=== PATIENT | female | born 1940 | race Caucasian/White ===

== ENCOUNTER 2016-10-27 18:32 | Inpatient (IN) | payer MEDICARE ==
[2016-10-27 19:41] LABS: Hematocrit 44 % (35-47); Hemoglobin 14.2 g/dl (12.0-16.0); Mean Corpuscular HGB Conc 32 g/dl (31-36); Mean Corpuscular Hemoglobin 28 pg (27-31); Mean Corpuscular Volume 87 fL (80-97); Mean Platelet Volume 10 um3 (7.4-10.4); Red Blood Count 5.07 10^6/ul (4.0-5.4); Red Cell Distribution Width 15 % (10.5-15); White Blood Count 6.4 10^3/ul (3.5-10.8)
--- NOTE | 2016-10-27 19:51 | RAD ---
Indication: Weakness. Nausea and vomiting for 2 days which has resolved since Tuesday. Comparison: March 28, 2007 Technique: Upright AP 1942 hours Report: No pulmonary infiltrate, focal pulmonary lesion, pleural effusion, pneumothorax. Upper normal heart size. Unremarkable central pulmonary vasculature and mediastinal contours accounting for portable technique and mild leftward rotation. IMPRESSION: No evidence for acute intrathoracic disease.
[2016-10-27 19:54] LABS: Albumin 3.7 g/dL (3.2-5.2); BUN/Creatinine Ratio 10.8 (8-20); Calcium 9.9 mg/dL (8.6-10.3); EGFR African American 47.5 (>60); Globulin 2.9 g/dL (2-4); Magnesium 1.9 mg/dL (1.9-2.7); Potassium 3.8 mmol/L (3.5-5.0); Total Bilirubin 0.5 mg/dL (0.2-1.0); Total Protein 6.6 g/dL (6.4-8.9)
[2016-10-27 19:58] LABS: Troponin I 0.07 ng/mL (<0.04)
[2016-10-27 20:11] LABS: TSH (Thyroid Stimulating Horm) 0.89 mcIU/mL (0.34-5.60)
[2016-10-27] MEDS ORDERED: NS 0.9% 1000 ML* 1,000 ML IV ONE (20:36)
[2016-10-27] MEDS ORDERED: Insulin REGULAR(*) 100 UNITS in NS 0.9% 100 ML* 100 ML IVPB ONE (20:42)
[2016-10-27 22:18] LABS: Urine Bacteria Absent (Absent); Urine Bilirubin Negative (Negative); Urine Glucose 3+(>=500 mg/dL) (Negative); Urine Nitrite Negative (Negative)
[2016-10-27] MEDS ORDERED: Ondansetron INJ* 2 MG/ML VIAL IV PRN (23:18)
[2016-10-27] MEDS ORDERED: Heparin DRIP 25,000 UNITS(*) 25,000 UNITS/500 ML BAG IV SCH (23:30)
[2016-10-27] MEDS ORDERED: Heparin VIAL(*) 5000 UNITS/ML VIAL (FIVE THOUSAND) IV SCH (23:45)
[2016-10-27] MEDS ORDERED: Insulin REGULAR(*) 100 UNITS in NS 0.9% 100 ML* 100 ML IV SCH (23:45)
[2016-10-27] MEDS ORDERED: NS 0.9% w/ 20 Meq KCL 1000 ML* 1,000 ML IV SCH (23:45)
--- NOTE | 2016-10-28 00:41 | ED ---
Taj Mcmillan Karl, scribed for Steven Scott MD on 10/27/16 at 1909 . Complex/Multi-Sys Presentation - HPI Summary HPI Summary: Pt is a 76 y/o female BIBA that presents to the ED c/o generalized weakness. Pt reported that she has been "kind of out of it all week" and has not felt right since her "disgusting spewing thing" for 2 days (nausea/vomiting). Pt son, at bedside, stated that she was suffering from nausea and vomiting but stopped 2 days agoand she has had very little oral intake since. Pt son reported that she looked "pale" and "very weak and lethargic" since her illness began. Pt denied diarrhea. Hx: HTN. - History Of Current Complaint Chief Complaint: EDGeneral Time Seen by Provider: 10/27/16 18:43 Hx Obtained From: Patient Onset/Duration: Gradual Onset, Lasting Weeks - 1, Worse Since - last 2 days Timing: Constant Severity Currently: Mild Severity Initially: Mild Associated Signs And Symptoms: Positive: Weakness, Nausea, Vomiting. Negative: Diarrhea - Allergies/Home Medications Allergies/Adverse Reactions: Allergies Allergy/AdvReac Type Severity Reaction Status Date / Time No Known Allergies Allergy Verified 10/27/16 18:43 PMH/Surg Hx/FS Hx/Imm Hx Cardiovascular History: Reports: Hx Hypertension - ON MEDS Respiratory History: Denies: Other Respiratory Problems/Disorders GI History: Denies: Other GI Disorders Musculoskeletal History: Reports: Hx Arthritis - HANDS, KNEES Denies: Hx Osteoporosis Sensory History: Reports: Hx Contacts or Glasses - GLASSES Denies: Hx Hearing Aid Opthamlomology History: Reports: Hx Contacts or Glasses - GLASSES Neurological History: Denies: Other Neuro Impairments/Disorders - Cancer History Hx Chemotherapy: No Hx Radiation Therapy: No - Surgical History Surgery Procedure, Year, and Place: right [place] [facility] [place]PLACED, [place], [facility] [place] HYSTERECTOMY, AGE 31, [facility]. CHIN BREAST REDUCTION, [place], [facility] [place]x Anesthesia Reactions: No Infectious Disease History: No Infectious Disease History: Denies: Traveled Outside the [place] in Last 30 Days - Family History Known Family History: Positive: Other - breast CA - mother/aunt - Social History Substance Use Type: Reports: None Hx Tobacco Use: No Smoking Status (MU): Never Smoked Tobacco Review of Systems Constitutional: Negative Eyes: Negative ENT: Negative Cardiovascular: Negative Respiratory: Negative Positive: Vomiting, Nausea. Negative: Diarrhea Genitourinary: Negative Musculoskeletal: Negative Skin: Negative Positive: Weakness - generalized weakness Psychological: Normal All Other Systems Reviewed And Are Negative: Yes Physical Exam Triage Information Reviewed: Yes Vital Signs On Initial Exam: Initial Vitals Temp Pulse Resp BP Pulse Ox 98.9 F 102 18 170/82 98 10/27/16 18:43 10/27/16 18:43 10/27/16 18:43 10/27/16 18:43 10/27/16 18:43 Vital Signs Reviewed: Yes Appearance: Positive: Well-Appearing, No Pain Distress Skin: Positive: Warm, Skin Color Reflects Adequate Perfusion, Dry Head/Face: Positive: Normal Head/Face Inspection Eyes: Positive: Normal ENT: Positive: Normal ENT inspection Neck: Positive: Supple, Nontender Respiratory/Lung Sounds: Positive: Clear to Auscultation, Breath Sounds Present Cardiovascular: Positive: Tachycardia - at 102 bpm Abdomen Description: Positive: Nontender, Soft Bowel Sounds: Positive: Present Musculoskeletal: Positive: Normal Neurological: Positive: Normal Psychiatric: Positive: Normal, Affect/Mood Appropriate Diagnostics - Vital Signs Vital Signs Temp Pulse Resp BP Pulse Ox 10/27/16 18:43 98.9 F 102 18 170/82 98 - Laboratory Lab Results: Lab Results 10/27/16 10/27/16 10/27/16 Range/Units 19:00 19:00 19:00 WBC 6.4 (3.5-10.8) 10^3/ul RBC 5.07 (4.0-5.4) 10^6/ul Hgb 14.2 (12.0-16.0) g/dl Hct 44 (35-47) % MCV 87 (80-97) fL MCH 28 (27-31) pg MCHC 32 (31-36) g/dl RDW 15 (10.5-15) % Plt Count 149 L (150-450) 10^3/ul MPV 10 (7.4-10.4) um3 Neut % (Auto) 82.6 (38-83) % Lymph % (Auto) 9.2 L (25-47) % [place] % (Auto) 7.6 (1-9) % Eos % (Auto) 0.1 (0-6) % Baso % (Auto) 0.5 (0-2) % Absolute Neuts (auto) 5.3 (1.5-7.7) 10^3/ul Absolute Lymphs (auto) 0.6 L (1.0-4.8) 10^3/ul Absolute Monos (auto) 0.5 (0-0.8) 10^3/ul Absolute Eos (auto) 0 (0-0.6) 10^3/ul Absolute Basos (auto) 0 (0-0.2) 10^3/ul Absolute Nucleated RBC 0 10^3/ul Nucleated RBC % 0 INR (Anticoag Therapy) (0.89-1.11) Sodium 131 L (133-145) mmol/L Potassium 3.8 (3.5-5.0) mmol/L Chloride 95 L (101-111) mmol/L Carbon Dioxide 11 L* (22-32) mmol/L Anion Gap 25 H (2-11) mmol/L BUN 15 (6-24) mg/dL Creatinine 1.39 H (0.51-0.95) mg/dL Est GFR ( Amer) 47.5 (>60) Est GFR (Non-Af Amer) 37.0 (>60) BUN/Creatinine Ratio 10.8 (8-20) Glucose 537 H* (70-100) mg/dL POC Glucose (mg/dL) (74-106) mg/dL Lactic Acid 1.1 (0.5-2.0) mmol/L Calcium 9.9 (8.6-10.3) mg/dL Magnesium 1.9 (1.9-2.7) mg/dL Total Bilirubin 0.50 (0.2-1.0) mg/dL AST 14 (13-39) U/L ALT 22 (7-52) U/L Alkaline Phosphatase 82 (34-104) U/L Troponin I 0.07 H* (<0.04) ng/mL Total Protein 6.6 (6.4-8.9) g/dL Albumin 3.7 (3.2-5.2) g/dL Globulin 2.9 (2-4) g/dL Albumin/Globulin Ratio 1.3 (1-3) TSH 0.89 (0.34-5.60) mcIU/mL Urine Color Urine Appearance Urine pH (5-9) Ur Specific [place] (1.010-1.030) Urine Protein (Negative) Urine Ketones (Negative) Urine Blood (Negative) Urine Nitrate (Negative) Urine Bilirubin (Negative) Urine Urobilinogen (Negative) Ur Leukocyte Esterase (Negative) Urine WBC (Auto) (Absent) Urine RBC (Auto) (Absent) Ur Squamous Epith Cells (Absent) Urine Bacteria (Absent) Urine Glucose (Negative) 10/27/16 10/27/16 10/27/16 Range/Units 19:00 22:00 22:55 WBC (3.5-10.8) 10^3/ul RBC (4.0-5.4) 10^6/ul Hgb (12.0-16.0) g/dl Hct (35-47) % MCV (80-97) fL MCH (27-31) pg MCHC (31-36) g/dl RDW (10.5-15) % Plt Count (150-450) 10^3/ul MPV (7.4-10.4) um3 Neut % (Auto) (38-83) % Lymph % (Auto) (25-47) % [place] % (Auto) (1-9) % Eos % (Auto) (0-6) % Baso % (Auto) (0-2) % Absolute Neuts (auto) (1.5-7.7) 10^3/ul Absolute Lymphs (auto) (1.0-4.8) 10^3/ul Absolute Monos (auto) (0-0.8) 10^3/ul Absolute Eos (auto) (0-0.6) 10^3/ul Absolute Basos (auto) (0-0.2) 10^3/ul Absolute Nucleated RBC 10^3/ul Nucleated RBC % INR (Anticoag Therapy) 0.81 L (0.89-1.11) Sodium (133-145) mmol/L Potassium (3.5-5.0) mmol/L Chloride (101-111) mmol/L Carbon Dioxide (22-32) mmol/L Anion Gap (2-11) mmol/L BUN (6-24) mg/dL Creatinine (0.51-0.95) mg/dL Est GFR ( Amer) (>60) Est GFR (Non-Af Amer) (>60) BUN/Creatinine Ratio (8-20) Glucose (70-100) mg/dL POC Glucose (mg/dL) 352 H (74-106) mg/dL Lactic Acid (0.5-2.0) mmol/L Calcium (8.6-10.3) mg/dL Magnesium (1.9-2.7) mg/dL Total Bilirubin (0.2-1.0) mg/dL AST (13-39) U/L ALT (7-52) U/L Alkaline Phosphatase (34-104) U/L Troponin I (<0.04) ng/mL Total Protein (6.4-8.9) g/dL Albumin (3.2-5.2) g/dL Globulin (2-4) g/dL Albumin/Globulin Ratio (1-3) TSH (0.34-5.60) mcIU/mL Urine Color Straw Urine Appearance Clear Urine pH 5.0 (5-9) Ur Specific [place] 1.022 (1.010-1.030) Urine Protein Negative (Negative) Urine Ketones 2+ H (Negative) Urine Blood 1+ H (Negative) Urine Nitrate Negative (Negative) Urine Bilirubin Negative (Negative) Urine Urobilinogen Negative (Negative) Ur Leukocyte Esterase Negative (Negative) Urine WBC (Auto) 1+(6-10/hpf) H (Absent) Urine RBC (Auto) 1+(3-5/hpf) H (Absent) Ur Squamous Epith Cells Present H (Absent) Urine Bacteria Absent (Absent) Urine Glucose 3+(>=500 mg/dl) H (Negative) Result Diagrams: 10/27/16 19:00 10/28/16 00:00 Lab Statement: Any lab studies that have been ordered have been reviewed, and results considered in the medical decision making process. - Radiology CXR Xray Interpretation: No Acute Changes Radiology Interpretation Completed By: Radiologist - IMPRESSION: No evidence for acute intrathoracic disease. - EKG 18:49 EKG Interpretation: Sinus tachycardia at 94 bpm w/ frequent PAC's, LBBB Complex Multi-Symp Course/Dx Course Of Treatment: Mildred Pritchard presented with 2 days of N/V followed by 2 days of feeling weak. She went to her PMD's office and was found to have a new LBBB and borderline tachycardia. She was sent to the ED. We found her trop to be low indeterminant but she also was in DKA. She was treated wioth fluids and an insulin drip. - Diagnoses Provider Diagnoses: DKA (diabetic ketoacidoses) - Physician Notifications Discussed Care Of Patient With: Dr. Rodriguez (Hospitalist) at 21:30 who suggested [address] cardiology. Dr. Resendez (Cardiology) at 22:42 who requested to talk to Dr. Rodriguez. - Critical Care Time Critical Care Time: 30-74 min Discharge - Discharge Plan Condition: Stable Disposition: ADMITTED TO [facility] documentation as recorded by the Taj sims Karl accurately reflects the service I personally performed and the decisions made by , Steven Scott MD.
[2016-10-28] MEDS ORDERED: Insulin REGULAR(*) 100 UNITS in NS 0.9% 100 ML* 100 ML IV SCH (00:43)
[2016-10-28] MEDS ORDERED: NS 0.9% w/ 20 Meq KCL 1000 ML* 1,000 ML IV SCH (00:44)
[2016-10-28 00:45] LABS: Hematocrit 43 % (35-47); Hemoglobin 13.9 g/dl (12.0-16.0); Mean Corpuscular HGB Conc 33 g/dl (31-36); Mean Corpuscular Hemoglobin 28 pg (27-31); Mean Corpuscular Volume 86 fL (80-97); Mean Platelet Volume 10 um3 (7.4-10.4); Red Blood Count 4.95 10^6/ul (4.0-5.4); Red Cell Distribution Width 16 % (10.5-15)
[2016-10-28 00:51] LABS: Troponin I 0.09 ng/mL (<0.04)
[2016-10-28] MEDS: Metoprolol Tartrate TAB* 25 MG PO SCH ×3 (01:23→16:39)
[2016-10-28] MEDS: Aspirin EC Low Dose* 81 MG TAB.EC PO SCH ×2 (01:26→10:56)
[2016-10-28 01:35] LABS: BUN/Creatinine Ratio 10.1 (8-20); Calcium 9.3 mg/dL (8.6-10.3); EGFR African American 51.8 (>60); EGFR Non-African American 40.3 (>60)
[2016-10-28 01:40] LABS: Potassium 3.1 mmol/L (3.5-5.0)
[2016-10-28] MEDS: D5W 1/2 NS KCl 20 Meq 1000 ML* 1,000 ML IV SCH ×2 (02:00→09:58)
--- NOTE | 2016-10-28 02:56 | HP ---
HISTORY AND PHYSICAL: DATE OF ADMISSION: PRIMARY CARE PHYSICIAN: Noé Dickens NP CHIEF COMPLAINT: Nausea, vomiting, weakness. HISTORY OF PRESENT ILLNESS: The patient is a 76-year-old woman who says this started on Tuesday night to Tuesday. She started feeling like she puts it crap. She developed nausea and vomiting, but she had no diarrhea. She had no increased thirst either. She did notice increase volume of urination. She had no fevers or chills, but she is always cold. It seemed to get progressively worse. By Tuesday, she was no longer having any nausea or vomiting. Apparently , her son came over today, saw she was going to feed their horse and said she looked like " warmed over." She was pale and just looked very weak. In the ER, the patient had some mild chest and some mild stomach pain, but that has resolved on its own. She has no shortness of breath, no diaphoresis, no other complaints. In the ED, the patient was evaluated and found to have an elevated glucose and labs consistent with DKA. PAST MEDICAL HISTORY: Significant only for hypertension and hyperlipidemia. ALLERGIES: She has no known drug allergies. CURRENT MEDICATIONS: Her current medication list is somewhat unclear, but it is : 1. Verapamil 240 mg daily. 2. Pravastatin supposedly 80 mg daily. 3. Oxybutynin 5 mg daily. 4. Multivitamin 1 tablet daily. 5. Metoprolol succinate apparently 200 mg daily. 6. Lisinopril 20 mg daily. 7. Calcium 2 tablets daily. 8. Aspirin 81 mg daily. FAMILY HISTORY: Her mother at 93. She had diabetes. Father at an unknown age with lung cancer. SOCIAL HISTORY: No tobacco, alcohol, or recreational drug use. She used to work at [employer]. She is a with 2 sons. Her son, Eduard Pritchard, is her healthcare proxy. REVIEW OF SYSTEMS: A 14-point review of systems was completed with the patient. All pertinent positives and negatives are in the history of present illness. Otherwise, it is negative. PHYSICAL EXAMINATION GENERAL: A pleasant woman lying in bed, in no acute distress. VITAL SIGNS: Temperature 98.9 degrees, heart rate 102 beats per minute, respiratory rate 18 breaths per minute, pulse ox 98%, blood pressure 170/82. HEENT: Normocephalic, atraumatic. Pupils are equal, round, reactive to light. Moist mucous membranes. NECK: Supple. No JVD, bruits, palpable thyroid, or lymphadenopathy. CHEST: Clear to auscultation and percussion bilaterally. CARDIOVASCULAR: S1, S2 appreciated. Regular rate and rhythm. ABDOMEN: Positive bowel sounds in all 4 quadrants. Soft, nontender, and nondistended. No hepatosplenomegaly. EXTREMITIES: No cyanosis, clubbing, or edema. +2 peripheral pulses bilaterally. NEURO: Alert and oriented x3, moves all extremities. DIAGNOSTIC STUDIES AND LABORATORY DATA: White count 6.4, hemoglobin 14.2, hematocrit 44, platelets 149. Sodium was 131, potassium 3.8, chloride 95, CO2 11, BUN 15, creatinine 1.39, glucose is 537, troponin 0.07. INR was 0.81. UA, there is +1 wbc's, +1 rbc's. Negative leukocyte esterase. Chest x-ray was interpreted by Radiology as no evidence for acute intrathoracic disease. EKG shows a left bundle-branch block pattern, which is apparently new at a rate of 94 beats a minute. ASSESSMENT AND PLAN: 1. Diabetic ketoacidosis. This is quite unusual, the patient suddenly developed this at this age. Hopefully, there is nothing significant going on in her pancreas and her numbers looked normal. For now, I will place her on diabetic ketoacidosis protocol with 0.1 unit/kg drip. I will place her on normal saline with 20 mEq of K 250 cc an hour. We will check basic metabolic profile q.2 hours and will check a fingerstick q.1 hour. When the fingerstick is less than 200, I will change the fluids to 150 cc an hour and I will cut the insulin drip in half. I will also add D5. I will check hemoglobin A1c as well. We will get diabetic teaching. 2. Elevated trops. I am concerned the patient's ischemia might have prompted this diabetic ketoacidosis. We will get serial trops. We will get an echocardiogram. We will place her on a heparin drip. We will continue her on a beta-saritha, aspirin, and statin. 3. FEN. NPO right now as she is in diabetic ketoacidosis. 4. DVT prophylaxis. Heparin subcu. 5. The patient is a full code. TIME SPENT: Over 85 minutes were spent on this H and P, more than 45 minutes were spent in direct [id number] contact with the patient in evaluation, physical exam, counseling, and coordination of care. CC: Noé Dickens NP* [id number]/[facility] #: [id number]
[2016-10-28 03:01] LABS: BUN/Creatinine Ratio 11.1 (8-20); Calcium 9.5 mg/dL (8.6-10.3); EGFR Non-African American 45.1 (>60)
[2016-10-28 03:04] LABS: Potassium 3.2 mmol/L (3.5-5.0)
[2016-10-28 04:15] LABS: BUN/Creatinine Ratio 11.7 (8-20); EGFR African American 67.2 (>60); EGFR Non-African American 52.2 (>60); Potassium 3.1 mmol/L (3.5-5.0)
[2016-10-28] MEDS: KCL 20 MEQ/100 ML IVPREMIX* 20 MEQ/100 ML BAG IV SCH ×2 (04:49→07:05)
[2016-10-28 05:05] LABS: Troponin I 0.1 ng/mL (<0.04)
[2016-10-28 06:12] LABS: Hematocrit 38 % (35-47); Hemoglobin 12.6 g/dl (12.0-16.0); Mean Corpuscular HGB Conc 33 g/dl (31-36); Mean Corpuscular Hemoglobin 28 pg (27-31); Mean Corpuscular Volume 85 fL (80-97); Mean Platelet Volume 9 um3 (7.4-10.4); Red Blood Count 4.47 10^6/ul (4.0-5.4); Red Cell Distribution Width 15 % (10.5-15); White Blood Count 8.6 10^3/ul (3.5-10.8)
[2016-10-28 06:26] LABS: BUN/Creatinine Ratio 11.9 (8-20); Calcium 8.8 mg/dL (8.6-10.3); EGFR African American 68.7 (>60); EGFR Non-African American 53.4 (>60); HDL Cholesterol 47.7 mg/dL; Potassium 3.2 mmol/L (3.5-5.0)
[2016-10-28 06:30] LABS: Troponin I 0.09 ng/mL (<0.04)
[2016-10-28] MEDS ORDERED: Dextrose 50% Syringe 50 ML* 25 GM/50 ML SYRINGE IV PUSH PRN (08:13)
[2016-10-28] MEDS ORDERED: Insulin GLARGINE(*) 1 UNITS UNIT SUBCUT ONE (08:13)
--- NOTE | 2016-10-28 08:24 | PN ---
Subjective Date of Service: 10/28/16 Interval History: Patient seen and examined at bedside. She states she is still "much better" and was able to get some sleep. She denies CP, SOB, abd pain, n/v. She reports that she does feel like she could "nibble on some food." No nursing concerns at this time. Telemetry: Sinus tachycardia with LBBB, some PVCs noted, rate 88 Family History: Unchanged from Admission Social History: Unchanged from Admission Past Medical History: Unchanged from Admission Objective Active Medications: Aspirin (Aspirin Ec Low Dose*) 81 mg PO DAILY [facility] Last Admin: 10/28/16 01:26 Dose: 81 mg Atorvastatin Calcium (Lipitor*) 40 mg PO 2100 CRISTOPHER Dextrose (D50w Syringe 50 Ml*) 12.5 gm IV PUSH .FOR FS < 60 - SS PRN PRN Reason: FS < 60 Heparin Sodium (Porcine) (Heparin Vial(*)) 0 units IV .PER PROTOCOL CRISTOPHER PRN Reason: Protocol Heparin Sodium/Dextrose (Heparin Drip 25,000 Units(*)) 25,000 units in 500 mls @ 0 mls/hr IV .NO INITIAL BOLUS CRISTOPHER; As Directed PRN Reason: Protocol Last Admin: 10/28/16 00:54 Dose: 20 mls/hr Insulin Human Regular 100 (units/ Sodium Chloride) 100 mls @ 3.96 mls/hr IV .( INITIAL RATE) CRISTOPHER PRN Reason: 0.05 UNITS/KG/HR Stop: 10/28/16 09:30 Potassium Chloride/Dextrose (D5w 1/2 Ns Kcl 20 Meq 1000 Ml*) 1,000 mls @ 125 mls/hr IV PER RATE [facility] Last Admin: 10/28/16 02:00 Dose: 125 mls/hr Potassium Chloride (Potassium Chloride 20 Meq/100 Ml Ivpremix*) 20 meq in 100 mls @ 50 mls/hr IV Q2H CRISTOPHER Stop: 10/28/16 08:59 Last Admin: 10/28/16 04:49 Dose: 50 mls/hr Insulin Glargine (Lantus(*)) 10 units SUBCUT ONCE ONE Stop: 10/28/16 08:14 Insulin Human Lispro (Humalog*) 0 units SUBCUT AC CRISTOPHER PRN Reason: Protocol Metoprolol Tartrate (Lopressor Tab*) 25 mg PO Q8H CRISTOPHER Last Admin: 10/28/16 01:23 Dose: 25 mg Ondansetron HCl (Zofran Inj*) 4 mg IV Q4H PRN PRN Reason: NAUSEA Last Admin: 10/28/16 00:13 Dose: 4 mg Vital Signs 10/28/16 10/28/16 10/28/16 00:38 00:47 00:50 Temperature 98.5 F Pulse Rate 112 75 Respiratory 19 19 Rate Blood Pressure 153/74 153/74 (mmHg) O2 Sat by Pulse 97 97 Oximetry 10/28/16 10/28/16 10/28/16 01:00 01:15 01:30 Temperature Pulse Rate 109 103 106 Respiratory 22 16 17 Rate Blood Pressure 144/76 135/76 150/83 (mmHg) O2 Sat by Pulse 98 97 97 Oximetry 10/28/16 10/28/16 10/28/16 01:31 01:45 02:00 Temperature Pulse Rate 104 98 Respiratory 18 16 19 Rate Blood Pressure 137/68 139/79 (mmHg) O2 Sat by Pulse 97 96 Oximetry 10/28/16 10/28/16 10/28/16 02:15 02:30 02:45 Temperature Pulse Rate 100 98 93 Respiratory 19 18 15 Rate Blood Pressure 126/58 120/59 137/67 (mmHg) O2 Sat by Pulse 96 95 96 Oximetry 10/28/16 10/28/16 10/28/16 03:00 03:15 03:30 Temperature Pulse Rate 91 85 52 Respiratory 17 15 14 Rate Blood Pressure 142/50 138/72 138/62 (mmHg) O2 Sat by Pulse 95 97 96 Oximetry 10/28/16 10/28/16 10/28/16 03:45 04:00 04:15 Temperature 98.4 F Pulse Rate 52 80 65 Respiratory 13 15 12 Rate Blood Pressure 144/74 130/68 137/64 (mmHg) O2 Sat by Pulse 94 95 97 Oximetry 10/28/16 10/28/16 10/28/16 04:30 04:45 05:00 Temperature Pulse Rate 79 76 78 Respiratory 16 16 14 Rate Blood Pressure 122/66 125/59 137/69 (mmHg) O2 Sat by Pulse 95 94 96 Oximetry 10/28/16 10/28/16 10/28/16 05:15 06:00 07:00 Temperature Pulse Rate 77 77 83 Respiratory 15 18 20 Rate Blood Pressure 101/80 125/65 116/74 (mmHg) O2 Sat by Pulse 95 93 94 Oximetry 10/28/16 07:55 Temperature Pulse Rate Respiratory 16 Rate Blood Pressure (mmHg) O2 Sat by Pulse Oximetry Oxygen Devices in Use Now: None Eyes: PERRLA Ears/Nose/Mouth/Throat: Clear Oropharnyx, Mucous Membranes Moist Neck: NL Appearance and Movements; NL JVP Respiratory: Symmetrical Chest Expansion and Respiratory Effort, Clear to Auscultation Cardiovascular: NL Sounds; No Murmurs; No JVD, RRR Abdominal: NL Sounds; No Tenderness; No Distention Extremities: No Edema Skin: No Rash or Ulcers Neurological: Alert and Oriented x 3 Lines/Tubes/Other Access: Clean, Dry and Intact Peripheral IV Result Diagrams: 10/28/16 05:40 10/28/16 05:40 Additional Lab and Data: Lab Results 10/27/16 10/27/16 10/27/16 Range/Units 19:00 19:00 19:00 WBC 6.4 (3.5-10.8) 10^3/ul RBC 5.07 (4.0-5.4) 10^6/ul Hgb 14.2 (12.0-16.0) g/dl Hct 44 (35-47) % MCV 87 (80-97) fL MCH 28 (27-31) pg MCHC 32 (31-36) g/dl RDW 15 (10.5-15) % Plt Count 149 L (150-450) 10^3/ul MPV 10 (7.4-10.4) um3 Neut % (Auto) 82.6 (38-83) % Lymph % (Auto) 9.2 L (25-47) % [place] % (Auto) 7.6 (1-9) % Eos % (Auto) 0.1 (0-6) % Baso % (Auto) 0.5 (0-2) % Absolute Neuts (auto) 5.3 (1.5-7.7) 10^3/ul Absolute Lymphs (auto) 0.6 L (1.0-4.8) 10^3/ul Absolute Monos (auto) 0.5 (0-0.8) 10^3/ul Absolute Eos (auto) 0 (0-0.6) 10^3/ul Absolute Basos (auto) 0 (0-0.2) 10^3/ul Absolute Nucleated RBC 0 10^3/ul Nucleated RBC % 0 INR (Anticoag Therapy) (0.89-1.11) Sodium 131 L (133-145) mmol/L Potassium 3.8 (3.5-5.0) mmol/L Chloride 95 L (101-111) mmol/L Carbon Dioxide 11 L* (22-32) mmol/L Anion Gap 25 H (2-11) mmol/L BUN 15 (6-24) mg/dL Creatinine 1.39 H (0.51-0.95) mg/dL Est GFR ( Amer) 47.5 (>60) Est GFR (Non-Af Amer) 37.0 (>60) BUN/Creatinine Ratio 10.8 (8-20) Glucose 537 H* (70-100) mg/dL POC Glucose (mg/dL) (74-106) mg/dL Lactic Acid 1.1 (0.5-2.0) mmol/L Calcium 9.9 (8.6-10.3) mg/dL Magnesium 1.9 (1.9-2.7) mg/dL Total Bilirubin 0.50 (0.2-1.0) mg/dL AST 14 (13-39) U/L ALT 22 (7-52) U/L Alkaline Phosphatase 82 (34-104) U/L Troponin I 0.07 H* (<0.04) ng/mL Total Protein 6.6 (6.4-8.9) g/dL Albumin 3.7 (3.2-5.2) g/dL Globulin 2.9 (2-4) g/dL Albumin/Globulin Ratio 1.3 (1-3) TSH 0.89 (0.34-5.60) mcIU/mL Urine Color Urine Appearance Urine pH (5-9) Ur Specific [place] (1.010-1.030) Urine Protein (Negative) Urine Ketones (Negative) Urine Blood (Negative) Urine Nitrate (Negative) Urine Bilirubin (Negative) Urine Urobilinogen (Negative) Ur Leukocyte Esterase (Negative) Urine WBC (Auto) (Absent) Urine RBC (Auto) (Absent) Ur Squamous Epith Cells (Absent) Urine Bacteria (Absent) Urine Glucose (Negative) 10/27/16 10/27/16 10/27/16 Range/Units 19:00 22:00 22:55 WBC (3.5-10.8) 10^3/ul RBC (4.0-5.4) 10^6/ul Hgb (12.0-16.0) g/dl Hct (35-47) % MCV (80-97) fL MCH (27-31) pg MCHC (31-36) g/dl RDW (10.5-15) % Plt Count (150-450) 10^3/ul MPV (7.4-10.4) um3 Neut % (Auto) (38-83) % Lymph % (Auto) (25-47) % [place] % (Auto) (1-9) % Eos % (Auto) (0-6) % Baso % (Auto) (0-2) % Absolute Neuts (auto) (1.5-7.7) 10^3/ul Absolute Lymphs (auto) (1.0-4.8) 10^3/ul Absolute Monos (auto) (0-0.8) 10^3/ul Absolute Eos (auto) (0-0.6) 10^3/ul Absolute Basos (auto) (0-0.2) 10^3/ul Absolute Nucleated RBC 10^3/ul Nucleated RBC % INR (Anticoag Therapy) 0.81 L (0.89-1.11) Sodium (133-145) mmol/L Potassium (3.5-5.0) mmol/L Chloride (101-111) mmol/L Carbon Dioxide (22-32) mmol/L Anion Gap (2-11) mmol/L BUN (6-24) mg/dL Creatinine (0.51-0.95) mg/dL Est GFR ( Amer) (>60) Est GFR (Non-Af Amer) (>60) BUN/Creatinine Ratio (8-20) Glucose (70-100) mg/dL POC Glucose (mg/dL) 352 H (74-106) mg/dL Lactic Acid (0.5-2.0) mmol/L Calcium (8.6-10.3) mg/dL Magnesium (1.9-2.7) mg/dL Total Bilirubin (0.2-1.0) mg/dL AST (13-39) U/L ALT (7-52) U/L Alkaline Phosphatase (34-104) U/L Troponin I (<0.04) ng/mL Total Protein (6.4-8.9) g/dL Albumin (3.2-5.2) g/dL Globulin (2-4) g/dL Albumin/Globulin Ratio (1-3) TSH (0.34-5.60) mcIU/mL Urine Color Straw Urine Appearance Clear Urine pH 5.0 (5-9) Ur Specific [place] 1.022 (1.010-1.030) Urine Protein Negative (Negative) Urine Ketones 2+ H (Negative) Urine Blood 1+ H (Negative) Urine Nitrate Negative (Negative) Urine Bilirubin Negative (Negative) Urine Urobilinogen Negative (Negative) Ur Leukocyte Esterase Negative (Negative) Urine WBC (Auto) 1+(6-10/hpf) H (Absent) Urine RBC (Auto) 1+(3-5/hpf) H (Absent) Ur Squamous Epith Cells Present H (Absent) Urine Bacteria Absent (Absent) Urine Glucose 3+(>=500 mg/dl) H (Negative) Microbiology and Other Data: Microbiology 10/28/16 03:45 Nasal Screen MRSA (PCR)(SHANNAN) - Final Nasal Mrsa Negative Assess/Plan/Problems-Billing Assessment: Ms. Pritchard is a 76 yo female with a PMH of HTN and HLD who presented to the ED on 10/27/16 with nausea, vomiting, and weakness and was found to be in DKA, with no known history of diabetes, and was also found to have a LBBB on her EKG and elevated troponins. - Patient Problems (1) DKA (diabetic ketoacidoses) Code(s): E13.10 - OTH DIABETES MELLITUS WITH KETOACIDOSIS WITHOUT COMA Comment : No known history of DM, per the patient HgbA1c pending Anion gap closed and BG 104-149 this AM Start Lantus, Lispro SSI coverage and plan to discontinue insulin gtt this AM Continue to follow BMP and electrolytes nurse informatics educator consult (2) Elevated troponin Code(s): R79.89 - OTHER SPECIFIED ABNORMAL FINDINGS OF BLOOD CHEMISTRY Comment : Max trop 0.10 at 0345 this AM Denies CP at this time Echocardiogram ordered and pending Continue heparin gtt Appreciate cardiology input (3) Left bundle branch block (LBBB) Code(s): I44.7 - LEFT BUNDLE-BRANCH BLOCK, UNSPECIFIED Comment: No previous EKG for review or comparison Unclear the acuity of this finding Will attempt to obtain records/prior EKG from PCP (4) HTN (hypertension) Code(s): I10 - ESSENTIAL (PRIMARY) HYPERTENSION Comment: Normotensive, continue metoprolol. Obtain recent med list from PCP as patient appears to be on other medications. (5) HLD (hyperlipidemia) Code(s): E78.5 - HYPERLIPIDEMIA, UNSPECIFIED Comment: Continue statin. (6) DVT prophylaxis Comment: Heparin gtt Status and Disposition: Inpatient admission. Anticipate LOS >2 days.
--- NOTE | 2016-10-28 09:53 | CONSULT ---
Subjective Date of Service: 10/28/16 Interval History: Admission Date: 10/27/16 Consult date 10/28/2016 Provider: Perez Rodriguez MD/Hospitalist service PRIMARY CARE PHYSICIAN: Noé Dickens NP CHIEF COMPLAINT: Nausea, vomiting, weakness. Reason for consult: Abnormal EKG, detectable troponin HISTORY OF PRESENT ILLNESS: Macho Levy is a 76-year-old woman with a history of HTN, dyslipidemia, and short term memory loss. She cannot name of any recent presidents and has 0/3 short term item list recall. She is accompanied by son Guero and his Cher. She thinks has not felt well for weeks if not months. More recently started with nausea, vomiting. Was noted to be pale and weak by son. There was some reports of mild chest and GI pain although she denies this to me and she is not having any current discomfort. She was found with new onset DKA and DM. There is no palpitation or syncope history. She was found with a new onset LBBB and abnormal troponin. A TTE showed a normal LVEF of 55% and no significant valvular abnormalities. PAST MEDICAL HISTORY: Hypertension Hyperlipidemia. New onset DM. ALLERGIES: She has no known drug allergies. FAMILY HISTORY: Her mother at 93. She had diabetes. Father at an unknown age with lung cancer. SOCIAL HISTORY: No tobacco, alcohol, or recreational drug use. She used to work at [employer]. She is a with 2 sons. Her son, Eduard Pritchard, is her healthcare proxy. Medications Active Medications: Aspirin (Aspirin Ec Low Dose*) 81 mg PO DAILY [facility] Last Admin: 10/28/16 01:26 Dose: 81 mg Atorvastatin Calcium (Lipitor*) 80 mg PO 1700 [facility] Dextrose (D50w Syringe 50 Ml*) 12.5 gm IV PUSH .FOR FS < 60 - SS PRN PRN Reason: FS < 60 Heparin Sodium (Porcine) (Heparin Vial(*)) 0 units IV .PER PROTOCOL CRISTOPHER PRN Reason: Protocol Heparin Sodium/Dextrose (Heparin Drip 25,000 Units(*)) 25,000 units in 500 mls @ 0 mls/hr IV .NO INITIAL BOLUS CRISTOPHER; As Directed PRN Reason: Protocol Last Admin: 10/28/16 00:54 Dose: 20 mls/hr Potassium Chloride/Dextrose (D5w 1/2 Ns Kcl 20 Meq 1000 Ml*) 1,000 mls @ 125 mls/hr IV PER RATE [facility] Last Admin: 10/28/16 02:00 Dose: 125 mls/hr Insulin Human Lispro (Humalog*) 0 units SUBCUT AC [facility] PRN Reason: Protocol Metoprolol Tartrate (Lopressor Tab*) 25 mg PO Q8H [facility] Last Admin: 10/28/16 01:23 Dose: 25 mg Ondansetron HCl (Zofran Inj*) 4 mg IV Q4H PRN PRN Reason: NAUSEA Last Admin: 10/28/16 00:13 Dose: 4 mg Home Medications: Aspirin [Aspirin 81] 81 mg PO DAILY 10/11/13 [History Confirmed 10/18/13] Calcium 2 PO DAILY 10/11/13 [History Confirmed 10/18/13] Lisinopril TAB* [Prinivil TAB*] 20 mg PO DAILY 10/11/13 [History Confirmed 10/18] Metoprolol Succinate [Metoprolol Succinate ER] mg PO DAILY 10/11/13 [History Confirmed 10/18/13] Multivitamin 1 PO DAILY 10/11/13 [History Confirmed 10/18/13] Oxybutynin TAB* [Ditropan TAB*] 1 PO DAILY 10/11/13 [History Confirmed 10/18/13] Pravastatin Sodium [Pravachol] 80 mg PO DAILY 10/11/13 [History Confirmed ] Verapamil HCl [Verapamil HCl ER] 240 mg PO DAILY 10/11/13 [History Confirmed 06/23] Review of Systems - Measurements Intake and Output: Intake and Output Last 24 Hours 10/26/16 10/27/16 10/28/16 10/29/16 06:59 06:59 06:59 06:59 Intake Total 620.5 Balance 620.5 Weight 159 lb 2.78 oz Intake: IV Fluids 441 D5W 1/2 NS 20 meq KCL 441 IVPB 43 KCL in Sterile Water 43 Medicated IV 39.5 CC - Insulin 39.5 Heparin 97 Other: Estimated Void Large # Voids 1 - Review of Systems Constitutional Symptoms: Positive: Weakness, Fatigue Negative: Weight Gain, Weight Loss, Fever, Night Sweats, Unexplained Falls Dermatology: Negative: Rash, Skin Lesions HEENT: Negative: Change in Hearing, Vertigo, Tinnitus, Sinus Problem Eyes: Negative: Change in Vision, Double Vision, Eye Pain Thyroid: Negative: Thyroid Nodule, Cold Intolerance, Heat Intolerance, Sweatiness, Tremor, Frequent Defecation, Constipation, Palpitations, Weight Loss, Weight Gain Pulmonary: Negative: Cough, Sputum, Hemoptysis, Wheezing, Respiratory Distress, Shortness of Breath, COPD Cardiology: Positive: Faintness Negative: Shortness of Breath, Palpitations, Swelling of Ankles, Peripheral Vascular Dis, Edema, Syncope, Claudication, Paroxysmal Nocturnal Dyspnea, Orthopnea Gastroenterology: Positive: Abdominal Pain, Nausea, Vomiting Negative: Anorexia, Difficulty Swallowing, Heartburn, Constipation, Diarrhea , Blood in Stools, Change in Bowel Habits, Haematemesis, Melena Genital - Urinary: Negative: Dysuria, Hematuria, Polyuria, Nocturia Musculoskeletal: Negative: Joint Pain, Joint Stiffness, Arthritis, Osteoporosis Endocrinology: Positive: Diabetes, Hyperglycemia Negative: Thyroid Problems, Hypoglycemia, Calluses, Hirsutism, Gynecomastia Hematologic/Lymphatic: Positive: Use of Antiplatelet Drugs Negative: Easy Brusing, Hx Leukemia, Hx Lymphoma, Use of Anticoagulant Neurology: Positive: Change in Memory Negative: Headaches, Migraines, Change in Balancing, Change in Coordination, Numbness\Paresthesiae, Hx of Stroke\TIA, Hx Seizures Psychiatry: Negative: Depression, Anxiety, Depressed Mood, Adhedonia, Sexual Dysfunction , Weight Change, Guilt Feelings, Tearfulness Allergic/Immunologic: Negative: Hx Anaphylaxis, Hx Angioedema, Hx Environmental Allergies, Hx HIV Review of Systems Statement: All other review of systems negative, unless stated above. Objective Vital Signs: Temp Pulse Resp BP Pulse Ox 99.6 F 66 15 131/56 95 10/28/16 08:00 10/28/16 09:00 10/28/16 09:00 10/28/16 09:00 10/28/16 09:00 Oxygen Devices in Use Now: None Appearance: NAD, pleasant Ears/Nose/Mouth/Throat: Clear Oropharnyx, Mucous Membranes Moist Neck: NL Appearance and Movements; NL JVP Respiratory: Symmetrical Chest Expansion and Respiratory Effort, Clear to Auscultation Cardiovascular: NL Sounds; No Murmurs; No JVD, RRR, No Edema Abdominal: NL Sounds; No Tenderness; No Distention Extremities: No Edema Skin: No Rash or Ulcers Neurological: Alert and Oriented x 3 Laboratory Results: 10/28/16 05:40 10/28/16 05:40 INR (Anticoag Therapy) 0.81 (0.89-1.11) L 10/27/16 19:00 APTT 24.5 seconds (26.0-36.3) L 10/28/16 00:00 Total Bilirubin 0.50 mg/dL (0.2-1.0) 10/27/16 19:00 AST 14 U/L (13-39) 10/27/16 19:00 ALT 22 U/L (7-52) 10/27/16 19:00 Alkaline Phosphatase 82 U/L (34-104) 10/27/16 19:00 Total Protein 6.6 g/dL (6.4-8.9) 10/27/16 19:00 Albumin 3.7 g/dL (3.2-5.2) 10/27/16 19:00 Globulin 2.9 g/dL (2-4) 10/27/16 19:00 Albumin/Globulin Ratio 1.3 (1-3) 10/27/16 19:00 Triglycerides 115 mg/dL 10/28/16 05:40 Cholesterol 225 mg/dL 10/28/16 05:40 LDL Cholesterol 154 mg/dL 10/28/16 05:40 HDL Cholesterol 47.7 mg/dL 10/28/16 05:40 TSH 0.89 mcIU/mL (0.34-5.60) 10/27/16 19:00 10/28/16 10/28/16 10/28/16 00:00 03:45 05:40 Troponin I 0.09 H* 0.10 H* 0.09 H* EKG Data: EKG admission: NSR, LBBB with PAC's Assessment/Plan In summary, Mildred Pritchard is a 76 year old woman with a history of HTN, dyslipidemia who presents with new onset DKA/diabetes, new LBBB and elevated troponin without definite anginal symptoms or rise and fall of troponin suggestive of an acute type 1 plaque disruption ACS. TTE with normal LVEF 55% - Continue aspirin 81 mg PO daily - Stop heparin gtt - Change pravastatin 80 mg to atorvastatin 80 mg PO daily (ordered) and continue at discharge - Continue SHOPPING INVESTIGATOR beta-saritha - Continue SHOPPING INVESTIGATOR AceI - Keep K > 4 and Mg > 2 - Would hold verapamil - DM/DKA per primary service - As long as patient remains clinically stable without anginal symptoms, hemodynamic instability or ventricular arrhythmias, I will arrange for an outpatient vasodilator stress MPI after discharge to evaluate for underlying obstructive CAD and to further risk stratify. For now would continue cardiac medications as above. I will arrange for follow up after the stress test. Thank you for allowing me to participate in the cardiovascular care of this patient. Please do not hesitate to contact me with questions or concerns.
[2016-10-28 10:07] LABS: BUN/Creatinine Ratio 9.8 (8-20); Calcium 9.2 mg/dL (8.6-10.3); EGFR African American 67.9 (>60); EGFR Non-African American 52.8 (>60); Magnesium 1.5 mg/dL (1.9-2.7); Phosphorus 1.3 mg/dL (2.5-5.0); Potassium 3.6 mmol/L (3.5-5.0)
[2016-10-28] MEDS ORDERED: Magnesium Sulf 4 GM/100 ML IV* 4,000 MG/100 ML BAG IVPB ONE (10:21)
[2016-10-28] MEDS: Insulin LISPRO* 1 UNITS UNIT SUBCUT SCH ×3 (11:41→18:28)
--- NOTE | 2016-10-28 12:30 | ECHO ---
Patient: GEORGI GUILLEN [facility] Rec#: [id number] : 1940 Date: 10/28/2016 Age: 76y Height: 160 cm / 63.0 in Weight: 79 kg / 174.1 lbs Sex: F BSA: 1.82 Room#: [facility] Admit Date#: 10/27/2016 Type: Inpatient Referring: Perez Rodriguez MD Reading: Chad Roth DO Plant Guard: Henry Davis RDCS CC: Noé Dickens NP Transthoracic Echocardiogram Indication: ABNORMAL,EKG BP: 125/65 HR: 80 Rhythm: NSR Findings History: HTN,HLD Technical Comments: The study is technically difficult. Completed 924 The study is technically limited due to poor apical windows. The study is technically limited due to patient body habitus. Left Ventricle: The left ventricular chamber size is normal. There is a prominent septal knuckle. There is normal left ventricular systolic function. The estimated ejection fraction is 55-60%. There is a left ventricular septal wall motion abnormality observed, possibly due to the presence of a left bundle branch block.There is normal LV wall thickening on visualized segments although limited by technically difficult apical imaging Abnormal left ventricular diastolic filling is observed, consistent with impaired relaxation. Left Atrium: The left atrial chamber size is normal. Right Ventricle: The right ventricular chamber size and systolic function are within normal limits. Right Atrium: The right atrial cavity size is normal. Aortic Valve: The aortic valve is trileaflet. The aortic valve leaflets are mildly thickened. There is mild thickening of the right coronary cusp. There is no evidence of aortic regurgitation. Mitral Valve: The mitral valve leaflets appear normal. There is a trace of mitral regurgitation. There is no evidence of mitral stenosis. Tricuspid Valve: The tricuspid valve appears normal in structure and function. There is trace tricuspid regurgitation. Unable to estimate the right ventricular systolic pressure. Pulmonic Valve: The pulmonic valve structure is not well visualized. There is no evidence of pulmonic regurgitation. There is no pulmonic stenosis. Pericardium: There is no significant pericardial effusion. Aorta: There is no dilatation of the ascending aorta. There is no dilatation of the aortic arch. There is no dilation of the aortic root. Pulmonary Artery: The main pulmonary artery is not well visualized. Venous: The inferior vena cava appears normal in size. There is a greater than 50% respiratory change in the inferior vena cava dimension. Conclusions The study is technically difficult. The left ventricular chamber size is normal. There is a prominent septal knuckle. The estimated ejection fraction is 55-60%. There is normal left ventricular systolic function. There is a left ventricular septal wall motion abnormality observed, possibly due to the presence of a left bundle branch block. The right ventricular chamber size and systolic function are within normal limits. No significant valvular abnormalities noted. No prior studies available for comparison at time of interpretation. Measurements Name Value Normal Range RVIDd (AP) 2D 2.5 cm (0.9 - 2.6) RVDdMajor (2D) 1.7 cm (2.2 - 4.4) RAd ISD 4CH 3.3 cm (3.4 - 4.9) RA (A4C)W 2.7 cm (2.9 - 4.6) IVSd (2D) 0.8 cm (0.6 - 1) LVPWd (2D) 0.8 cm (0.6 - 1) LVIDd (2D) 4.5 cm (3.6 - 5.4) LVIDs (2D) 2.2 cm - LV FS (2D) 51 % (25 - 45) Aortic Annulus 1.7 cm (1.4 - 2.6) Ao root diameter (2D) 2.5 cm (2.1 - 3.5) Ascending Ao 3 cm (2.1 - 3.4) Aortic arch 3.3 cm (1.8 - 3.4) LA dimension (AP) 2D 3.3 cm (2.3 - 3.8) LAd ISD 4CH 4.2 cm (2.9 - 5.3) LA ISD 4CH W 2.8 cm (2.5 - 4.5) Name Value Normal Range LA ESV SP 4CH (A/L) 27.62 ml - LA ESV SP 2CH (A/L) 40.45 ml - LA ESV BP (A/L) 34.08 ml - LA ESV SP 4CH (MOD) 24.91 ml - LA ESV SP 2CH (MOD) 38.34 ml - Name Value Normal Range MV E-wave Vmax 0.39 m/sec - MV deceleration time 221 msec - MV A-wave Vmax 0.78 m/sec - MV E:A ratio 0.5 ratio - LV septal e' Vmax 0.06 m/sec - LV lateral e' Vmax 0.05 m/sec - LV E:e' septal ratio 6.5 ratio - LV E:e' lateral ratio 7.8 ratio - Name Value Normal Range LVOT Vmax 1.6 m/sec - Name Value Normal Range IVC diameter 1.63 cm - Name Value Normal Range PV Vmax 1.07 m/sec - PV peak gradient 4.56 mmHg -
[2016-10-28 14:59] LABS: BUN/Creatinine Ratio 8.1 (8-20); Calcium 8.9 mg/dL (8.6-10.3); EGFR African American 70.3 (>60); EGFR Non-African American 54.7 (>60); Potassium 3.5 mmol/L (3.5-5.0)
[2016-10-28] MEDS ORDERED: Potassium Chlor TAB* 20 MEQ TAB.ER PO ONE (15:22)
[2016-10-28 15:40] LABS: Magnesium 3.3 mg/dL (1.9-2.7)
[2016-10-28] MEDS: Atorvastatin* 80 MG TAB PO SCH (16:39)
[2016-10-28 18:33] LABS: BUN/Creatinine Ratio 8.1 (8-20); EGFR African American 70.3 (>60); EGFR Non-African American 54.7 (>60); Magnesium 2.8 mg/dL (1.9-2.7); Phosphorus 1.4 mg/dL (2.5-5.0); Potassium 3.3 mmol/L (3.5-5.0)
[2016-10-28] MEDS: Insulin GLARGINE(*) 1 UNITS UNIT SUBCUT SCH (20:08)
[2016-10-28] MEDS ORDERED: Atorvastatin* 40 MG TAB PO SCH (21:00)
[2016-10-28] MEDS ORDERED: Potassium Chlor TAB* 20 MEQ TAB.ER PO SCH (21:00)
[2016-10-29] MEDS: Metoprolol Tartrate TAB* 25 MG PO SCH ×3 (00:42→15:46)
[2016-10-29 06:16] LABS: Hematocrit 37 % (35-47); Hemoglobin 12.4 g/dl (12.0-16.0); Mean Corpuscular HGB Conc 33 g/dl (31-36); Mean Corpuscular Hemoglobin 28 pg (27-31); Mean Corpuscular Volume 85 fL (80-97); Mean Platelet Volume 9 um3 (7.4-10.4); Red Blood Count 4.39 10^6/ul (4.0-5.4); Red Cell Distribution Width 15 % (10.5-15); White Blood Count 4.5 10^3/ul (3.5-10.8)
[2016-10-29 06:31] LABS: BUN/Creatinine Ratio 7.7 (8-20); Calcium 8.6 mg/dL (8.6-10.3); EGFR African American 77.5 (>60); EGFR Non-African American 60.3 (>60); Magnesium 2.1 mg/dL (1.9-2.7); Phosphorus 1.7 mg/dL (2.5-5.0); Potassium 3.4 mmol/L (3.5-5.0)
[2016-10-29] MEDS ORDERED: Influenza VAC *QUAD* 2016-17* 0.5 ML SYRINGE IM ONE ×2 (09:00→09:59)
[2016-10-29] MEDS ORDERED: Pneumococcal *Vac Polyvalent 0.5 ML VIAL IM ONE (09:00)
[2016-10-29] MEDS: Aspirin EC Low Dose* 81 MG TAB.EC PO SCH (09:07)
[2016-10-29] MEDS: Potassium Chlor TAB* 20 MEQ TAB.ER PO SCH ×2 (09:07→15:34)
[2016-10-29] MEDS: Insulin LISPRO* 1 UNITS UNIT SUBCUT SCH ×6 (09:07→17:57)
[2016-10-29] MEDS ORDERED: Pneumococcal *Vac Polyvalent 0.5 ML VIAL ONE (09:59)
--- NOTE | 2016-10-29 11:23 | PN ---
Subjective Date of Service: 10/29/16 Interval History: Patient seen and examined at bedside. Patient in room with son and daughter-in- law. Per her family, the patient's mental state is much closer to baseline. They describe her mental state yesterday as "almost childlike." The patient states she is feeling well and denies CP, SOB, abd pain, n/v. She reports feeling "more alert." We had an extensive conversation re: new DM diagnosis and her LBBB. Family made aware of plan to pursue outpatient stress test as well as begin diabetes education. We also discussed the importance of PT/OT eval in order to ensure the patient is safe to go home. Family and patient were receptive to conversation and willing to consider rehab if recommended. Telemetry: SR with LBBB, 70s Family History: Unchanged from Admission Social History: Unchanged from Admission Past Medical History: Unchanged from Admission Objective Active Medications: Aspirin (Aspirin Ec Low Dose*) 81 mg PO DAILY [facility] Last Admin: 10/29/16 09:07 Dose: 81 mg Atorvastatin Calcium (Lipitor*) 80 mg PO 1700 [facility] Last Admin: 10/28/16 16:39 Dose: 80 mg Dextrose (D50w Syringe 50 Ml*) 12.5 gm IV PUSH .FOR FS < 60 - SS PRN PRN Reason: FS < 60 Insulin Glargine (Lantus(*)) 10 units SUBCUT Q24H [facility] Last Admin: 10/28/16 20:08 Dose: 10 units Insulin Human Lispro (Humalog*) 0 units SUBCUT AC [facility] PRN Reason: Protocol Last Admin: 10/29/16 09:07 Dose: 2 units Insulin Human Lispro (Humalog*) 0 units SUBCUT AC [facility] PRN Reason: Protocol Last Admin: 10/29/16 09:07 Dose: 1 units Metoprolol Tartrate (Lopressor Tab*) 25 mg PO Q8H [facility] Last Admin: 10/29/16 09:07 Dose: 25 mg Ondansetron HCl (Zofran Inj*) 4 mg IV Q4H PRN PRN Reason: NAUSEA Last Admin: 10/28/16 00:13 Dose: 4 mg Potassium Chloride (Klor Con Er Tab*) 20 meq PO BID CRISTOPHER Potassium Chloride (Klor Con Er Tab*) 40 meq PO 0900,1400 [facility] Stop: 10/29/16 14:01 Last Admin: 10/29/16 09:07 Dose: 40 meq Vital Signs 10/28/16 10/28/16 10/28/16 11:00 11:04 11:44 Temperature 98.5 F Pulse Rate Respiratory 16 18 Rate Blood Pressure 137/71 (mmHg) O2 Sat by Pulse Oximetry 10/28/16 10/28/16 10/28/16 12:00 13:00 14:00 Temperature Pulse Rate Respiratory 16 16 18 Rate Blood Pressure 144/67 139/73 145/74 (mmHg) O2 Sat by Pulse Oximetry 10/28/16 10/28/16 10/28/16 14:29 15:00 16:00 Temperature 97.5 F Pulse Rate Respiratory 18 16 13 Rate Blood Pressure 131/69 106/52 (mmHg) O2 Sat by Pulse Oximetry 10/28/16 10/28/16 10/28/16 17:00 17:44 18:00 Temperature Pulse Rate Respiratory 14 18 15 Rate Blood Pressure 134/74 133/83 (mmHg) O2 Sat by Pulse Oximetry 10/28/16 10/28/16 10/28/16 18:01 19:00 20:00 Temperature 98.4 F Pulse Rate Respiratory 16 16 15 Rate Blood Pressure 142/79 126/63 (mmHg) O2 Sat by Pulse Oximetry 10/28/16 10/28/16 10/28/16 20:18 20:45 21:00 Temperature Pulse Rate Respiratory 18 16 15 Rate Blood Pressure 138/74 (mmHg) O2 Sat by Pulse Oximetry 10/28/16 10/28/16 10/28/16 22:00 23:00 23:12 Temperature 97.7 F Pulse Rate 65 Respiratory 14 23 16 Rate Blood Pressure 139/75 151/74 (mmHg) O2 Sat by Pulse 96 Oximetry 10/29/16 10/29/16 10/29/16 03:53 07:11 07:45 Temperature 98.6 F 97.6 F Pulse Rate 65 68 85 Respiratory 16 16 Rate Blood Pressure 137/66 82/69 (mmHg) O2 Sat by Pulse 97 97 Oximetry 10/29/16 08:00 Temperature Pulse Rate Respiratory Rate Blood Pressure 132/78 (mmHg) O2 Sat by Pulse Oximetry Oxygen Devices in Use Now: None Appearance: Older female patient, lying in bed, in NAD Eyes: PERRLA Ears/Nose/Mouth/Throat: Clear Oropharnyx, Mucous Membranes Moist Neck: NL Appearance and Movements; NL JVP Respiratory: Symmetrical Chest Expansion and Respiratory Effort, Clear to Auscultation Cardiovascular: NL Sounds; No Murmurs; No JVD, RRR Abdominal: NL Sounds; No Tenderness; No Distention Extremities: No Edema, No Clubbing, Cyanosis Skin: No Rash or Ulcers Neurological: - - Alert, oriented to self, placed. Mildly disoriented to time. Poor short term recall Lines/Tubes/Other Access: Clean, Dry and Intact Peripheral IV Nutrition: Taking PO's Result Diagrams: 10/29/16 06:07 10/29/16 06:07 Additional Lab and Data: Lab Results 10/27/16 10/27/16 10/27/16 Range/Units 19:00 19:00 19:00 WBC 6.4 (3.5-10.8) 10^3/ul RBC 5.07 (4.0-5.4) 10^6/ul Hgb 14.2 (12.0-16.0) g/dl Hct 44 (35-47) % MCV 87 (80-97) fL MCH 28 (27-31) pg MCHC 32 (31-36) g/dl RDW 15 (10.5-15) % Plt Count 149 L (150-450) 10^3/ul MPV 10 (7.4-10.4) um3 Neut % (Auto) 82.6 (38-83) % Lymph % (Auto) 9.2 L (25-47) % [place] % (Auto) 7.6 (1-9) % Eos % (Auto) 0.1 (0-6) % Baso % (Auto) 0.5 (0-2) % Absolute Neuts (auto) 5.3 (1.5-7.7) 10^3/ul Absolute Lymphs (auto) 0.6 L (1.0-4.8) 10^3/ul Absolute Monos (auto) 0.5 (0-0.8) 10^3/ul Absolute Eos (auto) 0 (0-0.6) 10^3/ul Absolute Basos (auto) 0 (0-0.2) 10^3/ul Absolute Nucleated RBC 0 10^3/ul Nucleated RBC % 0 INR (Anticoag Therapy) (0.89-1.11) Sodium 131 L (133-145) mmol/L Potassium 3.8 (3.5-5.0) mmol/L Chloride 95 L (101-111) mmol/L Carbon Dioxide 11 L* (22-32) mmol/L Anion Gap 25 H (2-11) mmol/L BUN 15 (6-24) mg/dL Creatinine 1.39 H (0.51-0.95) mg/dL Est GFR ( Amer) 47.5 (>60) Est GFR (Non-Af Amer) 37.0 (>60) BUN/Creatinine Ratio 10.8 (8-20) Glucose 537 H* (70-100) mg/dL POC Glucose (mg/dL) (74-106) mg/dL Lactic Acid 1.1 (0.5-2.0) mmol/L Calcium 9.9 (8.6-10.3) mg/dL Magnesium 1.9 (1.9-2.7) mg/dL Total Bilirubin 0.50 (0.2-1.0) mg/dL AST 14 (13-39) U/L ALT 22 (7-52) U/L Alkaline Phosphatase 82 (34-104) U/L Troponin I 0.07 H* (<0.04) ng/mL Total Protein 6.6 (6.4-8.9) g/dL Albumin 3.7 (3.2-5.2) g/dL Globulin 2.9 (2-4) g/dL Albumin/Globulin Ratio 1.3 (1-3) TSH 0.89 (0.34-5.60) mcIU/mL Urine Color Urine Appearance Urine pH (5-9) Ur Specific [place] (1.010-1.030) Urine Protein (Negative) Urine Ketones (Negative) Urine Blood (Negative) Urine Nitrate (Negative) Urine Bilirubin (Negative) Urine Urobilinogen (Negative) Ur Leukocyte Esterase (Negative) Urine WBC (Auto) (Absent) Urine RBC (Auto) (Absent) Ur Squamous Epith Cells (Absent) Urine Bacteria (Absent) Urine Glucose (Negative) 10/27/16 10/27/16 10/27/16 Range/Units 19:00 22:00 22:55 WBC (3.5-10.8) 10^3/ul RBC (4.0-5.4) 10^6/ul Hgb (12.0-16.0) g/dl Hct (35-47) % MCV (80-97) fL MCH (27-31) pg MCHC (31-36) g/dl RDW (10.5-15) % Plt Count (150-450) 10^3/ul MPV (7.4-10.4) um3 Neut % (Auto) (38-83) % Lymph % (Auto) (25-47) % [place] % (Auto) (1-9) % Eos % (Auto) (0-6) % Baso % (Auto) (0-2) % Absolute Neuts (auto) (1.5-7.7) 10^3/ul Absolute Lymphs (auto) (1.0-4.8) 10^3/ul Absolute Monos (auto) (0-0.8) 10^3/ul Absolute Eos (auto) (0-0.6) 10^3/ul Absolute Basos (auto) (0-0.2) 10^3/ul Absolute Nucleated RBC 10^3/ul Nucleated RBC % INR (Anticoag Therapy) 0.81 L (0.89-1.11) Sodium (133-145) mmol/L Potassium (3.5-5.0) mmol/L Chloride (101-111) mmol/L Carbon Dioxide (22-32) mmol/L Anion Gap (2-11) mmol/L BUN (6-24) mg/dL Creatinine (0.51-0.95) mg/dL Est GFR ( Amer) (>60) Est GFR (Non-Af Amer) (>60) BUN/Creatinine Ratio (8-20) Glucose (70-100) mg/dL POC Glucose (mg/dL) 352 H (74-106) mg/dL Lactic Acid (0.5-2.0) mmol/L Calcium (8.6-10.3) mg/dL Magnesium (1.9-2.7) mg/dL Total Bilirubin (0.2-1.0) mg/dL AST (13-39) U/L ALT (7-52) U/L Alkaline Phosphatase (34-104) U/L Troponin I (<0.04) ng/mL Total Protein (6.4-8.9) g/dL Albumin (3.2-5.2) g/dL Globulin (2-4) g/dL Albumin/Globulin Ratio (1-3) TSH (0.34-5.60) mcIU/mL Urine Color Straw Urine Appearance Clear Urine pH 5.0 (5-9) Ur Specific [place] 1.022 (1.010-1.030) Urine Protein Negative (Negative) Urine Ketones 2+ H (Negative) Urine Blood 1+ H (Negative) Urine Nitrate Negative (Negative) Urine Bilirubin Negative (Negative) Urine Urobilinogen Negative (Negative) Ur Leukocyte Esterase Negative (Negative) Urine WBC (Auto) 1+(6-10/hpf) H (Absent) Urine RBC (Auto) 1+(3-5/hpf) H (Absent) Ur Squamous Epith Cells Present H (Absent) Urine Bacteria Absent (Absent) Urine Glucose 3+(>=500 mg/dl) H (Negative) Microbiology and Other Data: Microbiology 10/28/16 03:45 Nasal Screen MRSA (PCR)(SHANNAN) - Final Nasal Mrsa Negative Assess/Plan/Problems-Billing Assessment: Ms. Pritchard is a 76 yo female with a PMH of HTN and HLD who presented to the ED on 10/27/16 with nausea, vomiting, and weakness and was found to be in DKA, with no known history of diabetes, and was also found to have a LBBB on her EKG and elevated troponins. - Patient Problems (1) DKA (diabetic ketoacidoses) Code(s): E13.10 - OTH DIABETES MELLITUS WITH KETOACIDOSIS WITHOUT COMA Comment : HgbA1c 16.5, new diabetic certified adaptive physical educator consult and nursing education Continue FSBG with Lispro SS with carb coverage (2) Elevated troponin Code(s): R79.89 - OTHER SPECIFIED ABNORMAL FINDINGS OF BLOOD CHEMISTRY Comment : Max trop 0.10, continues to deny CP Echocardiogram shows EF 55-60%, normal LV systolic function, LV septal wall motion abnormality possibly due to presence of LBBB, and no significant valvular abnormalities noted. Appreciate cardiology input Patient will require outpatient stress test, per cardiology. (3) Left bundle branch block (LBBB) Code(s): I44.7 - LEFT BUNDLE-BRANCH BLOCK, UNSPECIFIED Comment: No previous EKG for review or comparison Patient should follow-up with PCP for outpatient stress test. Continue ASA, metoprolol, statin, lisinopril (4) HTN (hypertension) Code(s): I10 - ESSENTIAL (PRIMARY) HYPERTENSION Comment: SBP 130s-150s, on metoprolol tartrate 25 mg q8. Patient has been normotensive to mildly hypertensive while on metoprolol tartrate. Resume Toprol XL but at reduced dose in order to prevent hypotension. Patient should also be on lisinopril 20 mg per home records. (5) HLD (hyperlipidemia) Code(s): E78.5 - HYPERLIPIDEMIA, UNSPECIFIED Comment: Continue statin. (6) DVT prophylaxis Comment: SQ Lovenox Status and Disposition: Inpatient admission. Anticipate LOS >2 days.
--- NOTE | 2016-10-29 15:33 | CONSULT ---
Subjective Reason for Visit: Diabetic education - New onset of diabetes Admission Date: Glucose Level On Admission: 537 mg/dl History Of Present Illness: 76 year old woman admitted in [facility] with new onset of diabetes. She had been feeling poorly over the last few weeks with episodes of weakness, nausea and vision changes. Her PCP is GUILLERMO Youngblood. Her medical history is significant for hypertension, hyperlipidemia and urge incontinence. Her DKA resolved and she was transferred from the ICU to a medical bed. She reports feeling much better now. Her HgbA1C = 16.5% Patient History Surgical History: Yes Surgery Procedure, Year, and Place: right [place] replacement, [place] [facility] [place]PL[place]ED[place] [facility] [place] HYSTERECTOMY, AGE 31, [facility]. CHIN BREAST REDUCTION, [place], [facility] [place] Past Family History: Mother - type 2 diabetes Father - from lung cancer Lives With: Self Marital Status: / Social Support: She has 2 sons. Her son Eduard Pritchard is her health care proxy. Hx Tobacco Use: No Smoking/Tobacco use: Never Objective Allergies Allergy/AdvReac Type Severity Reaction Status Date / Time No Known Allergies Allergy Verified 10/27/16 18:43 Home Medications Medication Instructions Recorded Confirmed Type Aspirin [Aspirin 81] 81 mg PO DAILY 10/11/13 10/18/13 History Calcium 2 PO DAILY 10/11/13 10/18/13 History Lisinopril TAB* [Prinivil TAB*] 20 mg PO DAILY 10/11/13 10/18/13 History Metoprolol Succinate [Metoprolol mg PO DAILY 10/11/13 10/18/13 History Succinate ER] Multivitamin 1 PO DAILY 10/11/13 10/18/13 History Oxybutynin TAB* [Ditropan TAB*] 1 PO DAILY 10/11/13 10/18/13 History Pravastatin Sodium [Pravachol] 80 mg PO DAILY 10/11/13 10/18/13 History Verapamil HCl [Verapamil HCl ER] 240 mg PO DAILY 10/11/13 10/18/13 History Hospital Medications: Current Medications Aspirin (Aspirin Ec Low Dose*) 81 mg PO DAILY [facility] Last Admin: 10/29/16 09:07 Dose: 81 mg Atorvastatin Calcium (Lipitor*) 80 mg PO 1700 [facility] Last Admin: 10/28/16 16:39 Dose: 80 mg Dextrose (D50w Syringe 50 Ml*) 12.5 gm IV PUSH .FOR FS < 60 - SS PRN PRN Reason: FS < 60 Insulin Glargine (Lantus(*)) 10 units SUBCUT Q24H [facility] Last Admin: 10/28/16 20:08 Dose: 10 units Insulin Human Lispro (Humalog*) 0 units SUBCUT AC [facility] PRN Reason: Protocol Last Admin: 10/29/16 12:56 Dose: 2 units Insulin Human Lispro (Humalog*) 0 units SUBCUT AC [facility] PRN Reason: Protocol Last Admin: 10/29/16 12:57 Dose: 1 units Metoprolol Tartrate (Lopressor Tab*) 25 mg PO Q8H [facility] Last Admin: 10/29/16 09:07 Dose: 25 mg Ondansetron HCl (Zofran Inj*) 4 mg IV Q4H PRN PRN Reason: NAUSEA Last Admin: 10/28/16 00:13 Dose: 4 mg Potassium Chloride (Klor Con Er Tab*) 20 meq PO BID [facility] Lab Data: Sodium 134 mmol/L (133-145) 10/29/16 06:07 Potassium 3.4 mmol/L (3.5-5.0) L 10/29/16 06:07 BUN 7 mg/dL (6-24) 10/29/16 06:07 Creatinine 0.91 mg/dL (0.51-0.95) 10/29/16 06:07 Hemoglobin A1c 16.5 % (Less than 6.0) H 10/28/16 05:40 Calcium 8.6 mg/dL (8.6-10.3) 10/29/16 06:07 Magnesium 2.1 mg/dL (1.9-2.7) 10/29/16 06:07 AST 14 U/L (13-39) 10/27/16 19:00 ALT 22 U/L (7-52) 10/27/16 19:00 Triglycerides 115 mg/dL 10/28/16 05:40 Cholesterol 225 mg/dL 10/28/16 05:40 LDL Cholesterol 154 mg/dL 10/28/16 05:40 Vital Signs: Vital Signs 10/29/16 10/29/16 10/29/16 07:45 08:00 11:47 Temperature 97.6 F 98.6 F Pulse Rate 85 75 Respiratory 16 18 18 Rate Blood Pressure 82/69 132/78 147/74 (mmHg) O2 Sat by Pulse 97 100 Oximetry Height: 5 ft 3 in Weight: 159 lb 2.78 oz Body Mass Index (BMI): 28.2 Physical Exam General Appearance: Positive: Alert, Oriented x3, Comfortable, OOB Sitting In Chair Respiratory: Positive: Non-Labored Plan Of Care Patient's Next Step: Patient to be discharged to sub-acute rehab facility before going home. Since this is a new onset of diabetes presenting in DKA, it might be helpful to check insulin auto-antibodies to rule out CINDI. She was given a Freestyle glucometer with instructions for use. Supplies for this will be faxed to [facility] pharmacy in [place]. She was also given instructions for insulin pen use. She was able to do a return demonstration for use of the glucometer and insulin pen. Her son and [id number] were present throughout the visit and will be able to provide support and reinforcement for both insulin pen and glucometer use. Referral To: [facility] For Further OutPT Diabetic Training, DSME Education Education Provided: Daily Self Injection, Blood Glucose Monitoring Handouts Provided: ADA guide: Living Well with Diabetes Recognition and treatment of hypoglycemia and hyperglycemia Care and rotation of insulin injection sites Goals Goals: According to the [place] [employer], the following are your goals for Hemaglobin A1C, Blood Glucose, Cholesterol and Blood Pressure. Hemaglobin A1C * <8.0% for "Less Healthy" Blood Glucose * Fasting Blood Glucose: 80-130 mg/dl * 2 Hour Post Prandial Glucose <180 mg/dl A total of 50 minutes was spent on patient counseling, education and coordination of care
[2016-10-29] MEDS: Atorvastatin* 80 MG TAB PO SCH (15:46)
[2016-10-29] MEDS: Enoxaparin(*) 40 MG/0.4 ML SYR SUBCUT SCH (16:17)
--- NOTE | 2016-10-29 16:52 | PN ---
Subjective Date of Service: 10/29/16 Interval History: f/u Abnormal EKG, detectable troponin Patient energy and thinking better today No cp or dyspnea tele: no arrhythmias Medications Active Medications: Aspirin (Aspirin Ec Low Dose*) 81 mg PO DAILY [facility] Last Admin: 10/29/16 09:07 Dose: 81 mg Atorvastatin Calcium (Lipitor*) 80 mg PO 1700 [facility] Last Admin: 10/29/16 15:46 Dose: 80 mg Dextrose (D50w Syringe 50 Ml*) 12.5 gm IV PUSH .FOR FS < 60 - SS PRN PRN Reason: FS < 60 Enoxaparin Sodium (Lovenox(*)) 40 mg SUBCUT Q24H [facility] Last Admin: 10/29/16 16:17 Dose: 40 mg Insulin Glargine (Lantus(*)) 10 units SUBCUT Q24H [facility] Last Admin: 10/28/16 20:08 Dose: 10 units Insulin Human Lispro (Humalog*) 0 units SUBCUT AC [facility] PRN Reason: Protocol Last Admin: 10/29/16 12:56 Dose: 2 units Insulin Human Lispro (Humalog*) 0 units SUBCUT AC [facility] PRN Reason: Protocol Last Admin: 10/29/16 12:57 Dose: 1 units Metoprolol Tartrate (Lopressor Tab*) 25 mg PO Q8H [facility] Last Admin: 10/29/16 15:46 Dose: 25 mg Ondansetron HCl (Zofran Inj*) 4 mg IV Q4H PRN PRN Reason: NAUSEA Last Admin: 10/28/16 00:13 Dose: 4 mg Potassium Chloride (Klor Con Er Tab*) 20 meq PO BID [facility] Objective Vital Signs: Temp Pulse Resp BP Pulse Ox 98.0 F 88 16 136/93 99 10/29/16 15:29 10/29/16 15:29 10/29/16 15:29 10/29/16 15:29 10/29/16 15:29 Oxygen Devices in Use Now: None Appearance: NAD, pleasant Ears/Nose/Mouth/Throat: Clear Oropharnyx, Mucous Membranes Moist Neck: NL Appearance and Movements; NL JVP Respiratory: Symmetrical Chest Expansion and Respiratory Effort, Clear to Auscultation Cardiovascular: NL Sounds; No Murmurs; No JVD, RRR, No Edema Abdominal: NL Sounds; No Tenderness; No Distention Extremities: No Edema Skin: No Rash or Ulcers Neurological: Alert and Oriented x 3 Laboratory Results: 10/29/16 06:07 10/29/16 06:07 INR (Anticoag Therapy) 0.81 (0.89-1.11) L 10/27/16 19:00 APTT 97.6 seconds (26.0-36.3) H 10/28/16 09:40 Total Bilirubin 0.50 mg/dL (0.2-1.0) 10/27/16 19:00 AST 14 U/L (13-39) 10/27/16 19:00 ALT 22 U/L (7-52) 10/27/16 19:00 Alkaline Phosphatase 82 U/L (34-104) 10/27/16 19:00 Total Protein 6.6 g/dL (6.4-8.9) 10/27/16 19:00 Albumin 3.7 g/dL (3.2-5.2) 10/27/16 19:00 Globulin 2.9 g/dL (2-4) 10/27/16 19:00 Albumin/Globulin Ratio 1.3 (1-3) 10/27/16 19:00 Triglycerides 115 mg/dL 10/28/16 05:40 Cholesterol 225 mg/dL 10/28/16 05:40 LDL Cholesterol 154 mg/dL 10/28/16 05:40 HDL Cholesterol 47.7 mg/dL 10/28/16 05:40 TSH 0.89 mcIU/mL (0.34-5.60) 10/27/16 19:00 10/28/16 10/28/16 10/28/16 00:00 03:45 05:40 Troponin I 0.09 H* 0.10 H* 0.09 H* EKG Data: EKG admission: NSR, LBBB with PAC's Assessment/Plan In summary, Mildred Pritchard is a 76 year old woman with a history of HTN, dyslipidemia who presents with new onset DKA/diabetes, new LBBB and elevated troponin without anginal symptoms or rise and fall of troponin suggestive of an acute type 1 plaque disruption ACS. TTE with normal LVEF 55% - Continue aspirin 81 mg PO daily - Continue atorvastatin 80 mg PO daily - Continue MARINE TECHNICIAN beta-saritha - Would restart MARINE TECHNICIAN AceI - Keep K > 4 and Mg > 2 - Would hold verapamil - DM/DKA per primary service - As long as patient remains clinically stable without anginal symptoms, hemodynamic instability or ventricular arrhythmias, I will arrange for an outpatient vasodilator stress MPI after discharge to evaluate for underlying obstructive CAD and to further risk stratify. For now would continue cardiac medications as above. I will arrange for follow up after the stress test. Thank you for allowing me to participate in the cardiovascular care of this patient. Please do not hesitate to contact me with questions or concerns.
[2016-10-29] MEDS ORDERED: Oxybutynin TAB* 5 MG PO PRN (18:22)
[2016-10-29] MEDS: Insulin GLARGINE(*) 1 UNITS UNIT SUBCUT SCH (21:47)
[2016-10-30 05:57] LABS: Hematocrit 42 % (35-47); Hemoglobin 13.8 g/dl (12.0-16.0); Mean Corpuscular HGB Conc 33 g/dl (31-36); Mean Corpuscular Hemoglobin 28 pg (27-31); Mean Corpuscular Volume 85 fL (80-97); Mean Platelet Volume 9 um3 (7.4-10.4); Red Cell Distribution Width 15 % (10.5-15); White Blood Count 5.9 10^3/ul (3.5-10.8)
[2016-10-30 06:14] LABS: BUN/Creatinine Ratio 10.6 (8-20); Calcium 9.2 mg/dL (8.6-10.3); EGFR African American 74.7 (>60); EGFR Non-African American 58.1 (>60); Potassium 4.2 mmol/L (3.5-5.0)
[2016-10-30] MEDS: Insulin LISPRO* 1 UNITS UNIT SUBCUT SCH ×6 (09:19→17:38)
[2016-10-30] MEDS: Calcium Carbonate CHEW TAB* 500 MG (TUMS) PO SCH (09:20)
[2016-10-30] MEDS: Metoprolol Succinate XL TAB* 100 MG PO SCH (09:20)
[2016-10-30] MEDS: Aspirin EC Low Dose* 81 MG TAB.EC PO SCH (09:20)
[2016-10-30] MEDS: Potassium Chlor TAB* 20 MEQ TAB.ER PO SCH ×2 (09:20→21:17)
[2016-10-30] MEDS: Lisinopril TAB* 10 MG PO SCH (09:20)
[2016-10-30] MEDS: Vitamin THERAPEUTIC TAB PO SCH (09:20)
[2016-10-30] MEDS: Allopurinol TAB* 300 MG PO SCH (09:20)
--- NOTE | 2016-10-30 14:49 | PN ---
Subjective Date of Service: 10/30/16 Interval History: Patient seen and examined at bedside. She denies CP, SOB, abd pain, n/v. She states, "I think I'm feeling better." She does report feeling overwhelmed with the new diabetes education. Education ongoing with staff. Telemetry: SR with LBBB 90s Family History: Unchanged from Admission Social History: Unchanged from Admission Past Medical History: Unchanged from Admission Objective Active Medications: Allopurinol (Zyloprim Tab*) 300 mg PO DAILY [facility] Last Admin: 10/30/16 09:20 Dose: 300 mg Aspirin (Aspirin Ec Low Dose*) 81 mg PO DAILY [facility] Last Admin: 10/30/16 09:20 Dose: 81 mg Atorvastatin Calcium (Lipitor*) 80 mg PO 1700 [facility] Last Admin: 10/29/16 15:46 Dose: 80 mg Calcium Carbonate (Tums*) 1,000 mg PO DAILY [facility] Last Admin: 10/30/16 09:20 Dose: 1,000 mg Dextrose (D50w Syringe 50 Ml*) 12.5 gm IV PUSH .FOR FS < 60 - SS PRN PRN Reason: FS < 60 Enoxaparin Sodium (Lovenox(*)) 40 mg SUBCUT Q24H [facility] Last Admin: 10/29/16 16:17 Dose: 40 mg Insulin Glargine (Lantus(*)) 10 units SUBCUT Q24H [facility] Last Admin: 10/29/16 21:47 Dose: 10 units Insulin Human Lispro (Humalog*) 0 units SUBCUT AC [facility] PRN Reason: Protocol Last Admin: 10/30/16 12:37 Dose: 4 units Insulin Human Lispro (Humalog*) 0 units SUBCUT AC [facility] PRN Reason: Protocol Last Admin: 10/30/16 12:37 Dose: 3 units Lisinopril (Prinivil Tab*) 20 mg PO DAILY [facility] Last Admin: 10/30/16 09:20 Dose: 20 mg Metoprolol Succinate (Toprol Xl Tab*) 100 mg PO DAILY [facility] Last Admin: 10/30/16 09:20 Dose: 100 mg Multivitamins (Theragran Tab*) 1 tab PO DAILY [facility] Last Admin: 10/30/16 09:20 Dose: 1 tab Ondansetron HCl (Zofran Inj*) 4 mg IV Q4H PRN PRN Reason: NAUSEA Last Admin: 10/28/16 00:13 Dose: 4 mg Oxybutynin Chloride (Ditropan Tab*) 5 mg PO BID PRN PRN Reason: SPASMS - BLADDER Potassium Chloride (Klor Con Er Tab*) 20 meq PO BID [facility] Last Admin: 10/30/16 09:20 Dose: 20 meq Vital Signs 10/29/16 10/29/16 10/29/16 15:29 19:26 20:00 Temperature 98.0 F 99.9 F Pulse Rate 88 81 Respiratory 16 18 18 Rate Blood Pressure 136/93 126/62 (mmHg) O2 Sat by Pulse 99 98 Oximetry 10/30/16 10/30/16 10/30/16 00:36 04:08 07:59 Temperature 98.6 F 97.6 F 98.2 F Pulse Rate 80 79 85 Respiratory 16 16 16 Rate Blood Pressure 146/67 108/56 147/77 (mmHg) O2 Sat by Pulse 99 98 99 Oximetry 10/30/16 10/30/16 08:00 12:03 Temperature 97.4 F Pulse Rate 93 Respiratory 18 16 Rate Blood Pressure 100/64 (mmHg) O2 Sat by Pulse 98 Oximetry Oxygen Devices in Use Now: None Appearance: Female patient, OOB to chair, in NAD Eyes: PERRLA Ears/Nose/Mouth/Throat: Clear Oropharnyx, Mucous Membranes Moist Neck: NL Appearance and Movements; NL JVP Respiratory: Symmetrical Chest Expansion and Respiratory Effort, Clear to Auscultation Cardiovascular: NL Sounds; No Murmurs; No JVD, RRR Abdominal: NL Sounds; No Tenderness; No Distention Extremities: No Edema Skin: No Rash or Ulcers Neurological: Alert and Oriented x 3 - poor short term memory, forgetful Lines/Tubes/Other Access: Clean, Dry and Intact Peripheral IV Nutrition: Taking PO's Result Diagrams: 10/30/16 05:28 10/30/16 05:28 Additional Lab and Data: Lab Results 10/27/16 10/27/16 10/27/16 Range/Units 19:00 19:00 19:00 WBC 6.4 (3.5-10.8) 10^3/ul RBC 5.07 (4.0-5.4) 10^6/ul Hgb 14.2 (12.0-16.0) g/dl Hct 44 (35-47) % MCV 87 (80-97) fL MCH 28 (27-31) pg MCHC 32 (31-36) g/dl RDW 15 (10.5-15) % Plt Count 149 L (150-450) 10^3/ul MPV 10 (7.4-10.4) um3 Neut % (Auto) 82.6 (38-83) % Lymph % (Auto) 9.2 L (25-47) % [place] % (Auto) 7.6 (1-9) % Eos % (Auto) 0.1 (0-6) % Baso % (Auto) 0.5 (0-2) % Absolute Neuts (auto) 5.3 (1.5-7.7) 10^3/ul Absolute Lymphs (auto) 0.6 L (1.0-4.8) 10^3/ul Absolute Monos (auto) 0.5 (0-0.8) 10^3/ul Absolute Eos (auto) 0 (0-0.6) 10^3/ul Absolute Basos (auto) 0 (0-0.2) 10^3/ul Absolute Nucleated RBC 0 10^3/ul Nucleated RBC % 0 INR (Anticoag Therapy) (0.89-1.11) Sodium 131 L (133-145) mmol/L Potassium 3.8 (3.5-5.0) mmol/L Chloride 95 L (101-111) mmol/L Carbon Dioxide 11 L* (22-32) mmol/L Anion Gap 25 H (2-11) mmol/L BUN 15 (6-24) mg/dL Creatinine 1.39 H (0.51-0.95) mg/dL Est GFR ( Amer) 47.5 (>60) Est GFR (Non-Af Amer) 37.0 (>60) BUN/Creatinine Ratio 10.8 (8-20) Glucose 537 H* (70-100) mg/dL POC Glucose (mg/dL) (74-106) mg/dL Lactic Acid 1.1 (0.5-2.0) mmol/L Calcium 9.9 (8.6-10.3) mg/dL Magnesium 1.9 (1.9-2.7) mg/dL Total Bilirubin 0.50 (0.2-1.0) mg/dL AST 14 (13-39) U/L ALT 22 (7-52) U/L Alkaline Phosphatase 82 (34-104) U/L Troponin I 0.07 H* (<0.04) ng/mL Total Protein 6.6 (6.4-8.9) g/dL Albumin 3.7 (3.2-5.2) g/dL Globulin 2.9 (2-4) g/dL Albumin/Globulin Ratio 1.3 (1-3) TSH 0.89 (0.34-5.60) mcIU/mL Urine Color Urine Appearance Urine pH (5-9) Ur Specific [place] (1.010-1.030) Urine Protein (Negative) Urine Ketones (Negative) Urine Blood (Negative) Urine Nitrate (Negative) Urine Bilirubin (Negative) Urine Urobilinogen (Negative) Ur Leukocyte Esterase (Negative) Urine WBC (Auto) (Absent) Urine RBC (Auto) (Absent) Ur Squamous Epith Cells (Absent) Urine Bacteria (Absent) Urine Glucose (Negative) 10/27/16 10/27/16 10/27/16 Range/Units 19:00 22:00 22:55 WBC (3.5-10.8) 10^3/ul RBC (4.0-5.4) 10^6/ul Hgb (12.0-16.0) g/dl Hct (35-47) % MCV (80-97) fL MCH (27-31) pg MCHC (31-36) g/dl RDW (10.5-15) % Plt Count (150-450) 10^3/ul MPV (7.4-10.4) um3 Neut % (Auto) (38-83) % Lymph % (Auto) (25-47) % [place] % (Auto) (1-9) % Eos % (Auto) (0-6) % Baso % (Auto) (0-2) % Absolute Neuts (auto) (1.5-7.7) 10^3/ul Absolute Lymphs (auto) (1.0-4.8) 10^3/ul Absolute Monos (auto) (0-0.8) 10^3/ul Absolute Eos (auto) (0-0.6) 10^3/ul Absolute Basos (auto) (0-0.2) 10^3/ul Absolute Nucleated RBC 10^3/ul Nucleated RBC % INR (Anticoag Therapy) 0.81 L (0.89-1.11) Sodium (133-145) mmol/L Potassium (3.5-5.0) mmol/L Chloride (101-111) mmol/L Carbon Dioxide (22-32) mmol/L Anion Gap (2-11) mmol/L BUN (6-24) mg/dL Creatinine (0.51-0.95) mg/dL Est GFR ( Amer) (>60) Est GFR (Non-Af Amer) (>60) BUN/Creatinine Ratio (8-20) Glucose (70-100) mg/dL POC Glucose (mg/dL) 352 H (74-106) mg/dL Lactic Acid (0.5-2.0) mmol/L Calcium (8.6-10.3) mg/dL Magnesium (1.9-2.7) mg/dL Total Bilirubin (0.2-1.0) mg/dL AST (13-39) U/L ALT (7-52) U/L Alkaline Phosphatase (34-104) U/L Troponin I (<0.04) ng/mL Total Protein (6.4-8.9) g/dL Albumin (3.2-5.2) g/dL Globulin (2-4) g/dL Albumin/Globulin Ratio (1-3) TSH (0.34-5.60) mcIU/mL Urine Color Straw Urine Appearance Clear Urine pH 5.0 (5-9) Ur Specific [place] 1.022 (1.010-1.030) Urine Protein Negative (Negative) Urine Ketones 2+ H (Negative) Urine Blood 1+ H (Negative) Urine Nitrate Negative (Negative) Urine Bilirubin Negative (Negative) Urine Urobilinogen Negative (Negative) Ur Leukocyte Esterase Negative (Negative) Urine WBC (Auto) 1+(6-10/hpf) H (Absent) Urine RBC (Auto) 1+(3-5/hpf) H (Absent) Ur Squamous Epith Cells Present H (Absent) Urine Bacteria Absent (Absent) Urine Glucose 3+(>=500 mg/dl) H (Negative) Microbiology and Other Data: Microbiology 10/28/16 03:45 Nasal Screen MRSA (PCR)(SHANNAN) - Final Nasal Mrsa Negative Assess/Plan/Problems-Billing Assessment: Ms. Pritchard is a 76 yo female with a PMH of HTN and HLD who presented to the ED on 10/27/16 with nausea, vomiting, and weakness and was found to be in DKA, with no known history of diabetes, and was also found to have a LBBB on her EKG and elevated troponins. - Patient Problems (1) DKA (diabetic ketoacidoses) Code(s): E13.10 - OTH DIABETES MELLITUS WITH KETOACIDOSIS WITHOUT COMA Comment : HgbA1c 16.5, new diabetic Labs sent to evaluate for CINDI Appreciate certified adapted physical educator consult, continue nursing diabetic education Continue FSBG with Lispro SS with carb coverage and Lantus (2) Elevated troponin Code(s): R79.89 - OTHER SPECIFIED ABNORMAL FINDINGS OF BLOOD CHEMISTRY Comment : Max trop 0.10, continues to deny CP Echocardiogram shows EF 55-60%, normal LV systolic function, LV septal wall motion abnormality possibly due to presence of LBBB, and no significant valvular abnormalities noted. Appreciate cardiology input Patient will require outpatient stress test, per cardiology. (3) Left bundle branch block (LBBB) Code(s): I44.7 - LEFT BUNDLE-BRANCH BLOCK, UNSPECIFIED Comment: No previous EKG for review or comparison Patient should follow-up with PCP for outpatient stress test. Continue ASA, metoprolol, statin, lisinopril (4) HTN (hypertension) Code(s): I10 - ESSENTIAL (PRIMARY) HYPERTENSION Comment: Normotensive. Continue Toprol XL at reduced dose of 100 and lisinopril. (5) HLD (hyperlipidemia) Code(s): E78.5 - HYPERLIPIDEMIA, UNSPECIFIED Comment: Continue statin. (6) DVT prophylaxis Comment: SQ Lovenox Status and Disposition: Inpatient admission. Plan for MAMADOU.
[2016-10-30] MEDS: Enoxaparin(*) 40 MG/0.4 ML SYR SUBCUT SCH (17:21)
[2016-10-30] MEDS: Atorvastatin* 80 MG TAB PO SCH (17:21)
[2016-10-30] MEDS: Insulin GLARGINE(*) 1 UNITS UNIT SUBCUT SCH (21:17)
[2016-10-31] MEDS: Insulin LISPRO* 1 UNITS UNIT SUBCUT SCH ×6 (08:39→17:36)
[2016-10-31] MEDS: Calcium Carbonate CHEW TAB* 500 MG (TUMS) PO SCH (08:42)
[2016-10-31] MEDS: Vitamin THERAPEUTIC TAB PO SCH (08:42)
[2016-10-31] MEDS: Metoprolol Succinate XL TAB* 100 MG PO SCH (08:42)
[2016-10-31] MEDS: Aspirin EC Low Dose* 81 MG TAB.EC PO SCH (08:43)
[2016-10-31] MEDS: Lisinopril TAB* 10 MG PO SCH (08:43)
[2016-10-31] MEDS: Allopurinol TAB* 300 MG PO SCH (08:43)
[2016-10-31] MEDS: Potassium Chlor TAB* 20 MEQ TAB.ER PO SCH ×2 (08:43→20:40)
--- NOTE | 2016-10-31 09:09 | PN ---
Subjective Date of Service: 10/31/16 Interval History: Patient seen and examined at bedside. She states, "I'm hoping to go to rehab tomorrow." When asked about her diabetes education and meal choices, she states , "I was told that won't be a problem because of what I eat." We discussed reviewing meal choices with nursing in order to make sure she understands what foods she should choose. We also discussed use of insulin. She is apprehensive about the insulin needles. Plan to work on this with nursing as well. She denies fever, dizziness, CP, SOB, abd pain, n/v. No acute concerns at this time. Family History: Unchanged from Admission Social History: Unchanged from Admission Past Medical History: Unchanged from Admission Objective Active Medications: Allopurinol (Zyloprim Tab*) 300 mg PO DAILY [facility] Last Admin: 10/31/16 08:43 Dose: 300 mg Aspirin (Aspirin Ec Low Dose*) 81 mg PO DAILY [facility] Last Admin: 10/31/16 08:43 Dose: 81 mg Atorvastatin Calcium (Lipitor*) 80 mg PO 1700 [facility] Last Admin: 10/30/16 17:21 Dose: 80 mg Calcium Carbonate (Tums*) 1,000 mg PO DAILY [facility] Last Admin: 10/31/16 08:42 Dose: 1,000 mg Dextrose (D50w Syringe 50 Ml*) 12.5 gm IV PUSH .FOR FS < 60 - SS PRN PRN Reason: FS < 60 Enoxaparin Sodium (Lovenox(*)) 40 mg SUBCUT Q24H [facility] Last Admin: 10/30/16 17:21 Dose: 40 mg Insulin Glargine (Lantus(*)) 15 units SUBCUT Q24H [facility] Last Admin: 10/30/16 21:17 Dose: 15 units Insulin Human Lispro (Humalog*) 0 units SUBCUT [facility] PRN Reason: Protocol Last Admin: 10/31/16 08:39 Dose: 2 units Insulin Human Lispro (Humalog*) 0 units SUBCUT AC [facility] PRN Reason: Protocol Last Admin: 10/31/16 08:40 Dose: 4 units Lisinopril (Prinivil Tab*) 20 mg PO DAILY [facility] Last Admin: 10/31/16 08:43 Dose: 20 mg Metoprolol Succinate (Toprol Xl Tab*) 100 mg PO DAILY [facility] Last Admin: 10/31/16 08:42 Dose: 100 mg Multivitamins (Theragran Tab*) 1 tab PO DAILY [facility] Last Admin: 10/31/16 08:42 Dose: 1 tab Ondansetron HCl (Zofran Inj*) 4 mg IV Q4H PRN PRN Reason: NAUSEA Last Admin: 10/28/16 00:13 Dose: 4 mg Oxybutynin Chloride (Ditropan Tab*) 5 mg PO BID PRN PRN Reason: SPASMS - BLADDER Potassium Chloride (Klor Con Er Tab*) 20 meq PO BID [facility] Last Admin: 10/31/16 08:43 Dose: 20 meq Vital Signs 10/30/16 10/30/16 10/30/16 12:03 16:11 19:50 Temperature 97.4 F 97.4 F 97.7 F Pulse Rate 93 86 87 Respiratory 16 16 16 Rate Blood Pressure 100/64 125/71 141/61 (mmHg) O2 Sat by Pulse 98 99 98 Oximetry 10/30/16 10/30/16 10/31/16 20:00 23:51 07:35 Temperature 98.3 F 98.0 F Pulse Rate 87 75 Respiratory 18 16 16 Rate Blood Pressure 118/50 146/68 (mmHg) O2 Sat by Pulse 99 100 Oximetry Oxygen Devices in Use Now: None Appearance: Older female patient, lying in bed, in NAD Eyes: PERRLA Ears/Nose/Mouth/Throat: Clear Oropharnyx, Mucous Membranes Moist Neck: NL Appearance and Movements; NL JVP Respiratory: Symmetrical Chest Expansion and Respiratory Effort, Clear to Auscultation Cardiovascular: NL Sounds; No Murmurs; No JVD, RRR Abdominal: NL Sounds; No Tenderness; No Distention Extremities: No Edema Skin: No Rash or Ulcers Neurological: Alert and Oriented x 3 Lines/Tubes/Other Access: Clean, Dry and Intact Peripheral IV Nutrition: Taking PO's Result Diagrams: 10/30/16 05:28 10/30/16 05:28 Additional Lab and Data: Lab Results 10/27/16 10/27/16 10/27/16 Range/Units 19:00 19:00 19:00 WBC 6.4 (3.5-10.8) 10^3/ul RBC 5.07 (4.0-5.4) 10^6/ul Hgb 14.2 (12.0-16.0) g/dl Hct 44 (35-47) % MCV 87 (80-97) fL MCH 28 (27-31) pg MCHC 32 (31-36) g/dl RDW 15 (10.5-15) % Plt Count 149 L (150-450) 10^3/ul MPV 10 (7.4-10.4) um3 Neut % (Auto) 82.6 (38-83) % Lymph % (Auto) 9.2 L (25-47) % [place] % (Auto) 7.6 (1-9) % Eos % (Auto) 0.1 (0-6) % Baso % (Auto) 0.5 (0-2) % Absolute Neuts (auto) 5.3 (1.5-7.7) 10^3/ul Absolute Lymphs (auto) 0.6 L (1.0-4.8) 10^3/ul Absolute Monos (auto) 0.5 (0-0.8) 10^3/ul Absolute Eos (auto) 0 (0-0.6) 10^3/ul Absolute Basos (auto) 0 (0-0.2) 10^3/ul Absolute Nucleated RBC 0 10^3/ul Nucleated RBC % 0 INR (Anticoag Therapy) (0.89-1.11) Sodium 131 L (133-145) mmol/L Potassium 3.8 (3.5-5.0) mmol/L Chloride 95 L (101-111) mmol/L Carbon Dioxide 11 L* (22-32) mmol/L Anion Gap 25 H (2-11) mmol/L BUN 15 (6-24) mg/dL Creatinine 1.39 H (0.51-0.95) mg/dL Est GFR ( Amer) 47.5 (>60) Est GFR (Non-Af Amer) 37.0 (>60) BUN/Creatinine Ratio 10.8 (8-20) Glucose 537 H* (70-100) mg/dL POC Glucose (mg/dL) (74-106) mg/dL Lactic Acid 1.1 (0.5-2.0) mmol/L Calcium 9.9 (8.6-10.3) mg/dL Magnesium 1.9 (1.9-2.7) mg/dL Total Bilirubin 0.50 (0.2-1.0) mg/dL AST 14 (13-39) U/L ALT 22 (7-52) U/L Alkaline Phosphatase 82 (34-104) U/L Troponin I 0.07 H* (<0.04) ng/mL Total Protein 6.6 (6.4-8.9) g/dL Albumin 3.7 (3.2-5.2) g/dL Globulin 2.9 (2-4) g/dL Albumin/Globulin Ratio 1.3 (1-3) TSH 0.89 (0.34-5.60) mcIU/mL Urine Color Urine Appearance Urine pH (5-9) Ur Specific [place] (1.010-1.030) Urine Protein (Negative) Urine Ketones (Negative) Urine Blood (Negative) Urine Nitrate (Negative) Urine Bilirubin (Negative) Urine Urobilinogen (Negative) Ur Leukocyte Esterase (Negative) Urine WBC (Auto) (Absent) Urine RBC (Auto) (Absent) Ur Squamous Epith Cells (Absent) Urine Bacteria (Absent) Urine Glucose (Negative) 10/27/16 10/27/16 10/27/16 Range/Units 19:00 22:00 22:55 WBC (3.5-10.8) 10^3/ul RBC (4.0-5.4) 10^6/ul Hgb (12.0-16.0) g/dl Hct (35-47) % MCV (80-97) fL MCH (27-31) pg MCHC (31-36) g/dl RDW (10.5-15) % Plt Count (150-450) 10^3/ul MPV (7.4-10.4) um3 Neut % (Auto) (38-83) % Lymph % (Auto) (25-47) % [place] % (Auto) (1-9) % Eos % (Auto) (0-6) % Baso % (Auto) (0-2) % Absolute Neuts (auto) (1.5-7.7) 10^3/ul Absolute Lymphs (auto) (1.0-4.8) 10^3/ul Absolute Monos (auto) (0-0.8) 10^3/ul Absolute Eos (auto) (0-0.6) 10^3/ul Absolute Basos (auto) (0-0.2) 10^3/ul Absolute Nucleated RBC 10^3/ul Nucleated RBC % INR (Anticoag Therapy) 0.81 L (0.89-1.11) Sodium (133-145) mmol/L Potassium (3.5-5.0) mmol/L Chloride (101-111) mmol/L Carbon Dioxide (22-32) mmol/L Anion Gap (2-11) mmol/L BUN (6-24) mg/dL Creatinine (0.51-0.95) mg/dL Est GFR ( Amer) (>60) Est GFR (Non-Af Amer) (>60) BUN/Creatinine Ratio (8-20) Glucose (70-100) mg/dL POC Glucose (mg/dL) 352 H (74-106) mg/dL Lactic Acid (0.5-2.0) mmol/L Calcium (8.6-10.3) mg/dL Magnesium (1.9-2.7) mg/dL Total Bilirubin (0.2-1.0) mg/dL AST (13-39) U/L ALT (7-52) U/L Alkaline Phosphatase (34-104) U/L Troponin I (<0.04) ng/mL Total Protein (6.4-8.9) g/dL Albumin (3.2-5.2) g/dL Globulin (2-4) g/dL Albumin/Globulin Ratio (1-3) TSH (0.34-5.60) mcIU/mL Urine Color Straw Urine Appearance Clear Urine pH 5.0 (5-9) Ur Specific [place] 1.022 (1.010-1.030) Urine Protein Negative (Negative) Urine Ketones 2+ H (Negative) Urine Blood 1+ H (Negative) Urine Nitrate Negative (Negative) Urine Bilirubin Negative (Negative) Urine Urobilinogen Negative (Negative) Ur Leukocyte Esterase Negative (Negative) Urine WBC (Auto) 1+(6-10/hpf) H (Absent) Urine RBC (Auto) 1+(3-5/hpf) H (Absent) Ur Squamous Epith Cells Present H (Absent) Urine Bacteria Absent (Absent) Urine Glucose 3+(>=500 mg/dl) H (Negative) Microbiology and Other Data: Microbiology 10/28/16 03:45 Nasal Screen MRSA (PCR)(SHANNAN) - Final Nasal Mrsa Negative Assess/Plan/Problems-Billing Assessment: Ms. Pritchard is a 76 yo female with a PMH of HTN and HLD who presented to the ED on 10/27/16 with nausea, vomiting, and weakness and was found to be in DKA, with no known history of diabetes, and was also found to have a LBBB on her EKG and elevated troponins. - Patient Problems (1) DKA (diabetic ketoacidoses) Code(s): E13.10 - OTH DIABETES MELLITUS WITH KETOACIDOSIS WITHOUT COMA Comment : HgbA1c 16.5, new diabetic Labs sent to evaluate for CINDI Appreciate community nutrition educator consult, continue nursing diabetic education Continue FSBG with Lispro SS with carb coverage and Lantus (2) Elevated troponin Code(s): R79.89 - OTHER SPECIFIED ABNORMAL FINDINGS OF BLOOD CHEMISTRY Comment : Max trop 0.10, continues to deny CP Echocardiogram shows EF 55-60%, normal LV systolic function, LV septal wall motion abnormality possibly due to presence of LBBB, and no significant valvular abnormalities noted. Appreciate cardiology input Patient will require outpatient stress test, per cardiology. (3) Left bundle branch block (LBBB) Code(s): I44.7 - LEFT BUNDLE-BRANCH BLOCK, UNSPECIFIED Comment: No previous EKG for review or comparison Patient should follow-up with cardiology for outpatient stress test. Continue ASA, metoprolol, statin, lisinopril (4) HTN (hypertension) Code(s): I10 - ESSENTIAL (PRIMARY) HYPERTENSION Comment: Normotensive. Continue Toprol XL at reduced dose of 100 and lisinopril. Hold verapamil. (5) HLD (hyperlipidemia) Code(s): E78.5 - HYPERLIPIDEMIA, UNSPECIFIED Comment: Continue statin. (6) DVT prophylaxis Comment: SQ Lovenox Status and Disposition: Inpatient admission. Plan for [facility].
[2016-10-31] MEDS: Enoxaparin(*) 40 MG/0.4 ML SYR SUBCUT SCH (17:34)
[2016-10-31] MEDS: Atorvastatin* 80 MG TAB PO SCH (17:37)
[2016-10-31] MEDS: Insulin GLARGINE(*) 1 UNITS UNIT SUBCUT SCH (20:41)
[2016-11-01] MEDS: Insulin LISPRO* 1 UNITS UNIT SUBCUT SCH ×6 (09:03→18:13)
[2016-11-01] MEDS: Potassium Chlor TAB* 20 MEQ TAB.ER PO SCH ×2 (09:05→20:50)
[2016-11-01] MEDS: Allopurinol TAB* 300 MG PO SCH (09:06)
[2016-11-01] MEDS: Calcium Carbonate CHEW TAB* 500 MG (TUMS) PO SCH (09:06)
[2016-11-01] MEDS: Vitamin THERAPEUTIC TAB PO SCH (09:06)
[2016-11-01] MEDS: Lisinopril TAB* 10 MG PO SCH (09:06)
[2016-11-01] MEDS: Aspirin EC Low Dose* 81 MG TAB.EC PO SCH (09:07)
[2016-11-01] MEDS: Metoprolol Succinate XL TAB* 100 MG PO SCH (09:07)
--- NOTE | 2016-11-01 11:30 | PN ---
Subjective Date of Service: 11/01/16 Interval History: Patient seen and examined at bedside. She is OOB to chair, watching TV. She states, "I'm doing well." She is wondering when she will be leaving for rehab. She denies CP, SOB, abd pain, n/v, dizziness, dysuria. No acute nursing concerns. Family History: Unchanged from Admission Social History: Unchanged from Admission Past Medical History: Unchanged from Admission Objective Active Medications: Allopurinol (Zyloprim Tab*) 300 mg PO DAILY [facility] Last Admin: 11/01/16 09:06 Dose: 300 mg Aspirin (Aspirin Ec Low Dose*) 81 mg PO DAILY [facility] Last Admin: 11/01/16 09:07 Dose: 81 mg Atorvastatin Calcium (Lipitor*) 80 mg PO 1700 [facility] Last Admin: 10/31/16 17:37 Dose: 80 mg Calcium Carbonate (Tums*) 1,000 mg PO DAILY [facility] Last Admin: 11/01/16 09:06 Dose: 1,000 mg Dextrose (D50w Syringe 50 Ml*) 12.5 gm IV PUSH .FOR FS < 60 - SS PRN PRN Reason: FS < 60 Enoxaparin Sodium (Lovenox(*)) 40 mg SUBCUT Q24H [facility] Last Admin: 10/31/16 17:34 Dose: 40 mg Insulin Glargine (Lantus(*)) 15 units SUBCUT Q24H [facility] Last Admin: 10/31/16 20:41 Dose: 15 units Insulin Human Lispro (Humalog*) 0 units SUBCUT AC [facility] PRN Reason: Protocol Last Admin: 11/01/16 09:03 Dose: 1 units Insulin Human Lispro (Humalog*) 0 units SUBCUT AC [facility] PRN Reason: Protocol Last Admin: 11/01/16 09:03 Dose: 4 units Lisinopril (Prinivil Tab*) 20 mg PO DAILY [facility] Last Admin: 11/01/16 09:06 Dose: 20 mg Metoprolol Succinate (Toprol Xl Tab*) 100 mg PO DAILY [facility] Last Admin: 11/01/16 09:07 Dose: 100 mg Multivitamins (Theragran Tab*) 1 tab PO DAILY [facility] Last Admin: 11/01/16 09:06 Dose: 1 tab Ondansetron HCl (Zofran Inj*) 4 mg IV Q4H PRN PRN Reason: NAUSEA Last Admin: 10/28/16 00:13 Dose: 4 mg Oxybutynin Chloride (Ditropan Tab*) 5 mg PO BID PRN PRN Reason: SPASMS - BLADDER Potassium Chloride (Klor Con Er Tab*) 20 meq PO BID [facility] Last Admin: 11/01/16 09:05 Dose: 20 meq Vital Signs 10/31/16 10/31/16 10/31/16 15:43 20:00 23:19 Temperature 97.6 F 98.0 F Pulse Rate 83 82 Respiratory 20 20 Rate Blood Pressure 126/72 140/62 (mmHg) O2 Sat by Pulse 100 99 Oximetry Oxygen Devices in Use Now: None Appearance: Older female patient, sitting in chair, in NAD Eyes: PERRLA Ears/Nose/Mouth/Throat: Clear Oropharnyx, Mucous Membranes Moist Neck: NL Appearance and Movements; NL JVP Respiratory: Symmetrical Chest Expansion and Respiratory Effort, Clear to Auscultation Cardiovascular: NL Sounds; No Murmurs; No JVD, RRR Abdominal: NL Sounds; No Tenderness; No Distention Extremities: No Edema Skin: No Rash or Ulcers Neurological: Alert and Oriented x 3 Lines/Tubes/Other Access: Clean, Dry and Intact Peripheral IV Nutrition: Taking PO's Result Diagrams: 10/30/16 05:28 10/30/16 05:28 Additional Lab and Data: Lab Results 10/27/16 10/27/16 10/27/16 Range/Units 19:00 19:00 19:00 WBC 6.4 (3.5-10.8) 10^3/ul RBC 5.07 (4.0-5.4) 10^6/ul Hgb 14.2 (12.0-16.0) g/dl Hct 44 (35-47) % MCV 87 (80-97) fL MCH 28 (27-31) pg MCHC 32 (31-36) g/dl RDW 15 (10.5-15) % Plt Count 149 L (150-450) 10^3/ul MPV 10 (7.4-10.4) um3 Neut % (Auto) 82.6 (38-83) % Lymph % (Auto) 9.2 L (25-47) % [place] % (Auto) 7.6 (1-9) % Eos % (Auto) 0.1 (0-6) % Baso % (Auto) 0.5 (0-2) % Absolute Neuts (auto) 5.3 (1.5-7.7) 10^3/ul Absolute Lymphs (auto) 0.6 L (1.0-4.8) 10^3/ul Absolute Monos (auto) 0.5 (0-0.8) 10^3/ul Absolute Eos (auto) 0 (0-0.6) 10^3/ul Absolute Basos (auto) 0 (0-0.2) 10^3/ul Absolute Nucleated RBC 0 10^3/ul Nucleated RBC % 0 INR (Anticoag Therapy) (0.89-1.11) Sodium 131 L (133-145) mmol/L Potassium 3.8 (3.5-5.0) mmol/L Chloride 95 L (101-111) mmol/L Carbon Dioxide 11 L* (22-32) mmol/L Anion Gap 25 H (2-11) mmol/L BUN 15 (6-24) mg/dL Creatinine 1.39 H (0.51-0.95) mg/dL Est GFR ( Amer) 47.5 (>60) Est GFR (Non-Af Amer) 37.0 (>60) BUN/Creatinine Ratio 10.8 (8-20) Glucose 537 H* (70-100) mg/dL POC Glucose (mg/dL) (74-106) mg/dL Lactic Acid 1.1 (0.5-2.0) mmol/L Calcium 9.9 (8.6-10.3) mg/dL Magnesium 1.9 (1.9-2.7) mg/dL Total Bilirubin 0.50 (0.2-1.0) mg/dL AST 14 (13-39) U/L ALT 22 (7-52) U/L Alkaline Phosphatase 82 (34-104) U/L Troponin I 0.07 H* (<0.04) ng/mL Total Protein 6.6 (6.4-8.9) g/dL Albumin 3.7 (3.2-5.2) g/dL Globulin 2.9 (2-4) g/dL Albumin/Globulin Ratio 1.3 (1-3) TSH 0.89 (0.34-5.60) mcIU/mL Urine Color Urine Appearance Urine pH (5-9) Ur Specific [place] (1.010-1.030) Urine Protein (Negative) Urine Ketones (Negative) Urine Blood (Negative) Urine Nitrate (Negative) Urine Bilirubin (Negative) Urine Urobilinogen (Negative) Ur Leukocyte Esterase (Negative) Urine WBC (Auto) (Absent) Urine RBC (Auto) (Absent) Ur Squamous Epith Cells (Absent) Urine Bacteria (Absent) Urine Glucose (Negative) 10/27/16 10/27/16 10/27/16 Range/Units 19:00 22:00 22:55 WBC (3.5-10.8) 10^3/ul RBC (4.0-5.4) 10^6/ul Hgb (12.0-16.0) g/dl Hct (35-47) % MCV (80-97) fL MCH (27-31) pg MCHC (31-36) g/dl RDW (10.5-15) % Plt Count (150-450) 10^3/ul MPV (7.4-10.4) um3 Neut % (Auto) (38-83) % Lymph % (Auto) (25-47) % [place] % (Auto) (1-9) % Eos % (Auto) (0-6) % Baso % (Auto) (0-2) % Absolute Neuts (auto) (1.5-7.7) 10^3/ul Absolute Lymphs (auto) (1.0-4.8) 10^3/ul Absolute Monos (auto) (0-0.8) 10^3/ul Absolute Eos (auto) (0-0.6) 10^3/ul Absolute Basos (auto) (0-0.2) 10^3/ul Absolute Nucleated RBC 10^3/ul Nucleated RBC % INR (Anticoag Therapy) 0.81 L (0.89-1.11) Sodium (133-145) mmol/L Potassium (3.5-5.0) mmol/L Chloride (101-111) mmol/L Carbon Dioxide (22-32) mmol/L Anion Gap (2-11) mmol/L BUN (6-24) mg/dL Creatinine (0.51-0.95) mg/dL Est GFR ( Amer) (>60) Est GFR (Non-Af Amer) (>60) BUN/Creatinine Ratio (8-20) Glucose (70-100) mg/dL POC Glucose (mg/dL) 352 H (74-106) mg/dL Lactic Acid (0.5-2.0) mmol/L Calcium (8.6-10.3) mg/dL Magnesium (1.9-2.7) mg/dL Total Bilirubin (0.2-1.0) mg/dL AST (13-39) U/L ALT (7-52) U/L Alkaline Phosphatase (34-104) U/L Troponin I (<0.04) ng/mL Total Protein (6.4-8.9) g/dL Albumin (3.2-5.2) g/dL Globulin (2-4) g/dL Albumin/Globulin Ratio (1-3) TSH (0.34-5.60) mcIU/mL Urine Color Straw Urine Appearance Clear Urine pH 5.0 (5-9) Ur Specific [place] 1.022 (1.010-1.030) Urine Protein Negative (Negative) Urine Ketones 2+ H (Negative) Urine Blood 1+ H (Negative) Urine Nitrate Negative (Negative) Urine Bilirubin Negative (Negative) Urine Urobilinogen Negative (Negative) Ur Leukocyte Esterase Negative (Negative) Urine WBC (Auto) 1+(6-10/hpf) H (Absent) Urine RBC (Auto) 1+(3-5/hpf) H (Absent) Ur Squamous Epith Cells Present H (Absent) Urine Bacteria Absent (Absent) Urine Glucose 3+(>=500 mg/dl) H (Negative) Microbiology and Other Data: Microbiology 10/28/16 03:45 Nasal Screen MRSA (PCR)(SHANNAN) - Final Nasal Mrsa Negative Assess/Plan/Problems-Billing Assessment: Ms. Pritchard is a 76 yo female with a PMH of HTN and HLD who presented to the ED on 10/27/16 with nausea, vomiting, and weakness and was found to be in DKA, with no known history of diabetes, and was also found to have a LBBB on her EKG and elevated troponins. - Patient Problems (1) DKA (diabetic ketoacidoses) Code(s): E13.10 - OTH DIABETES MELLITUS WITH KETOACIDOSIS WITHOUT COMA Comment : HgbA1c 16.5, new diabetic Labs sent to evaluate for CINDI Appreciate consumer educator consult, continue nursing diabetic education Continue FSBG with Lispro SS with carb coverage and Lantus (2) Elevated troponin Code(s): R79.89 - OTHER SPECIFIED ABNORMAL FINDINGS OF BLOOD CHEMISTRY Comment : Max trop 0.10, continues to deny CP Echocardiogram shows EF 55-60%, normal LV systolic function, LV septal wall motion abnormality possibly due to presence of LBBB, and no significant valvular abnormalities noted. Appreciate cardiology input Patient will require outpatient stress test, per cardiology. (3) Left bundle branch block (LBBB) Code(s): I44.7 - LEFT BUNDLE-BRANCH BLOCK, UNSPECIFIED Comment: No previous EKG for review or comparison Patient should follow-up with cardiology for outpatient stress test. Continue ASA, metoprolol, statin, lisinopril (4) HTN (hypertension) Code(s): I10 - ESSENTIAL (PRIMARY) HYPERTENSION Comment: Normotensive. Continue Toprol XL at reduced dose of 100 and lisinopril. Hold verapamil. (5) HLD (hyperlipidemia) Code(s): E78.5 - HYPERLIPIDEMIA, UNSPECIFIED Comment: Continue statin. (6) DVT prophylaxis Comment: SQ Lovenox Status and Disposition: Inpatient admission. Plan for d/c to [facility] tomorrow.
[2016-11-01] MEDS: Enoxaparin(*) 40 MG/0.4 ML SYR SUBCUT SCH (16:52)
[2016-11-01] MEDS: Atorvastatin* 80 MG TAB PO SCH (17:20)
[2016-11-01] MEDS ORDERED: Insulin GLARGINE(*) 1 UNITS UNIT SUBCUT SCH (20:00)
--- NOTE | 2016-11-02 04:21 | DS ---
MEDICINE TRANSFER SUMMARY: DATE OF ADMISSION: 10/28/16 DATE OF TRANSFER: 11/02/16 PRIMARY CARE PHYSICIAN: Noé Dickens NP ATTENDING PHYSICIAN: Matt Simmons MD* (as dictated by Chapin Renae NP) CONSULTING PHYSICIAN: Chad Roth DO. ROLLOUT MANAGER: Marianela Sebastian NP. PRIMARY DISCHARGE DIAGNOSES: 1. Diabetic ketoacidosis. 2. New diabetes mellitus with hemoglobin A1c of 16.5. 3. Left bundle branch block. 4. Elevated troponin. SECONDARY DISCHARGE DIAGNOSES: 1. Hypertension. 2. Hyperlipidemia. MEDICATIONS AT DISCHARGE: 1. Aspirin 81 mg daily. 2. Allopurinol 300 mg daily. 3. Atorvastatin 80 mg daily. 4. Calcium supplement 1000 mg daily. 5. Lisinopril 20 mg daily. 6. Metoprolol XL 100 mg daily. Note this is a change in dosing. 7. Multivitamin 1 tab daily. 8. Ditropan 5 mg daily. 9. Potassium chloride 20 mEq b.i.d. 10. Humalog insulin sliding scale. For a blood glucose between 131 to 150 blood sugar, give 1 unit; for 151 to 200, give 2 units; for 201 to 250, give 4 units; for 251 to 300, give 6 units; for 301 to 350, give 8 units; for 351 to 400, give 10 units. 11. Lantus 20 units subcu q.24 hours in the evening. Insulin is new to the patient. Please also note the reduced metoprolol dose. The patient has also been stopped on her verapamil per Cardiology. DIAGNOSTIC TESTING DURING THIS ADMISSION: Transthoracic echocardiogram. Conclusions: The study is technically difficult. The left ventricular chamber size is normal. There is a prominent septal knuckle. The estimated ejection fraction is 55% to 60%. There is normal left ventricular systolic function. There is a left ventricular septal wall motion abnormality observed, possibly due to the presence of a left bundle branch block. The right ventricular chamber size and systolic function are within normal limits. No significant valvular abnormalities noted. No prior studies available for comparison at the time of interpretation. HOSPITAL COURSE OF STAY: For full details, please refer to the H and P provided by Dr. Rodriguez on 10/28/16. In summary, Mr. Pritchard is a 76-year-old female who was brought into the ED for nausea, vomiting, and weakness. She denied any history of fever or chills. When her son came to see her at home, he noted that she looked very ill and weak. In the ER, the patient reported some mild chest and stomach pain, which resolved on its own. When her labs were drawn, she was found to have an elevated glucose and labs consistent with DKA. She was started on an insulin drip and treated per DKA protocol, it resolved quickly. We switched her to sliding scale insulin and added Lantus coverage for elevated blood glucose levels and we were able to control her blood sugars effectively while she was here. The patient was also noted to have elevated troponins in the ED with a maximum 0.1. She was seen by Cardiology as there was concern that the patient also had a left bundle branch block of unknown acuity. However, given that she had no anginal symptoms or rise or fall of troponins suggestive of an acute type 1 plaque disruption ACS, it is recommended that the patient follow up with Cardiology for an outpatient stress test. The patient and her family are in agreement with this. Per Cardiology, we will continue her on aspirin 81 mg daily as well as atorvastatin instead of her pravastatin. We will continue her beta-saritha and ELINA inhibitor , but hold her verapamil. Continue potassium or magnesium supplementation to keep her potassium above 4 and mag above 2. For further details, please refer to the cardiology consult provided by Dr. Roth. It was noted as we were adjusting her medications that the patient was normotensive on 75 mg of metoprolol tartrate. When I reintroduced her back to her Toprol XL, I cut her dose down to 100 mg as she was previously on 200 mg. She has remained normotensive with this dosing adjustment. The patient did meet with the childbirth educator to start diabetic teaching and nursing has been reinforcing this teaching. The patient still requires more education on glucometer use and self-injections with insulin. However, she is open and receptive to teaching. Given that she is 76 years old and this is a late onset of diabetes or any DKA, we did check insulin antibodies to rule out latent autoimmune diabetes. However, these tests are still pending. The patient had PT and OT consult here in the hospital as I was concerned for her mental state which did actually clear up once she had her blood sugars resolved. However, it was noted by OT that the patient would benefit from assistance with ADLs such as dressing, feeding, and self-care. The patient agrees to rehab as does her family and is planning to be transferred to [facility] bed. CONDITION ON DISCHARGE: The patient will be transferred to [facility] on with followup with the facility physician or her PCP, Noé Dickens. The patient should continue diabetes education and follow up with Cardiology for outpatient stress test as previously mentioned. DIET: Consistent carbohydrate, heart-healthy diet. ACTIVITY: As tolerated. CONDITION: Stable. DISPOSITION: To [facility]. TIME SPENT: Time spent on this discharge was approximately 45 minutes. Again, this is only a brief summary of the patient's course of stay. For full details, please refer to the full medical record. If you have any further questions or need further assistance, please feel free to contact me at [phone]. CHAPIN RENAE NP CC: Noé Dickens NP * [id number]/[facility] #: [id number] [id number]
[2016-11-02 06:51] LABS: Calcium 9.1 mg/dL (8.6-10.3); EGFR African American 69.5 (>60); EGFR Non-African American 54.1 (>60); Potassium 3.8 mmol/L (3.5-5.0)
[2016-11-02] MEDS: Insulin LISPRO* 1 UNITS UNIT SUBCUT SCH ×4 (08:51→14:03)
[2016-11-02] MEDS: Allopurinol TAB* 300 MG PO SCH (08:53)
[2016-11-02] MEDS: Lisinopril TAB* 10 MG PO SCH (08:53)
[2016-11-02] MEDS: Calcium Carbonate CHEW TAB* 500 MG (TUMS) PO SCH (08:54)
[2016-11-02] MEDS: Aspirin EC Low Dose* 81 MG TAB.EC PO SCH (08:54)
[2016-11-02] MEDS: Metoprolol Succinate XL TAB* 100 MG PO SCH (08:54)
[2016-11-02] MEDS: Potassium Chlor TAB* 20 MEQ TAB.ER PO SCH (08:54)
[2016-11-02] MEDS: Vitamin THERAPEUTIC TAB PO SCH (08:54)
[2016-11-02 08:58] VITALS: BP 131/65
--- NOTE | 2016-11-02 09:21 | PN ---
Subjective Date of Service: 11/02/16 Interval History: Patient seen and examined at bedside. I observed her walking from the hallway into her room with relatively steady gait. She reports some low back pain, which is chronic and intermittent. She looks forward to going to [place]. She denies dizziness, fever, CP, SOB, abd pain, n/v. No acute nursing concerns. Family History: Unchanged from Admission Social History: Unchanged from Admission Past Medical History: Unchanged from Admission Objective Active Medications: Allopurinol (Zyloprim Tab*) 300 mg PO DAILY [facility] Last Admin: 11/02/16 08:53 Dose: 300 mg Aspirin (Aspirin Ec Low Dose*) 81 mg PO DAILY [facility] Last Admin: 11/02/16 08:54 Dose: 81 mg Atorvastatin Calcium (Lipitor*) 80 mg PO 1700 [facility] Last Admin: 11/01/16 17:20 Dose: 80 mg Calcium Carbonate (Tums*) 1,000 mg PO DAILY [facility] Last Admin: 11/02/16 08:54 Dose: 1,000 mg Dextrose (D50w Syringe 50 Ml*) 12.5 gm IV PUSH .FOR FS < 60 - SS PRN PRN Reason: FS < 60 Enoxaparin Sodium (Lovenox(*)) 40 mg SUBCUT Q24H [facility] Last Admin: 11/01/16 16:52 Dose: 40 mg Insulin Glargine (Lantus(*)) 20 units SUBCUT Q24H [facility] Last Admin: 11/01/16 20:52 Dose: 20 units Insulin Human Lispro (Humalog*) 0 units SUBCUT AC [facility] PRN Reason: Protocol Last Admin: 11/02/16 08:56 Dose: Not Given Insulin Human Lispro (Humalog*) 0 units SUBCUT AC [facility] PRN Reason: Protocol Last Admin: 11/02/16 08:51 Dose: 5 units Lisinopril (Prinivil Tab*) 20 mg PO DAILY [facility] Last Admin: 11/02/16 08:53 Dose: 20 mg Metoprolol Succinate (Toprol Xl Tab*) 100 mg PO DAILY [facility] Last Admin: 11/02/16 08:54 Dose: 100 mg Multivitamins (Theragran Tab*) 1 tab PO DAILY [facility] Last Admin: 11/02/16 08:54 Dose: 1 tab Ondansetron HCl (Zofran Inj*) 4 mg IV Q4H PRN PRN Reason: NAUSEA Last Admin: 10/28/16 00:13 Dose: 4 mg Oxybutynin Chloride (Ditropan Tab*) 5 mg PO BID PRN PRN Reason: SPASMS - BLADDER Potassium Chloride (Klor Con Er Tab*) 20 meq PO BID [facility] Last Admin: 11/02/16 08:54 Dose: 20 meq Vital Signs 11/01/16 11/01/16 11/01/16 15:08 21:03 23:31 Temperature 97.7 F 97.6 F Pulse Rate 90 84 Respiratory 17 16 18 Rate Blood Pressure 123/48 136/85 (mmHg) O2 Sat by Pulse 99 99 Oximetry 11/02/16 11/02/16 07:18 08:00 Temperature 97.4 F Pulse Rate 73 Respiratory 18 Rate Blood Pressure 131/65 (mmHg) O2 Sat by Pulse 100 Oximetry Oxygen Devices in Use Now: None Appearance: Older female, OOB to chair, in NAD Eyes: PERRLA Ears/Nose/Mouth/Throat: Clear Oropharnyx, Mucous Membranes Moist Neck: NL Appearance and Movements; NL JVP Respiratory: Symmetrical Chest Expansion and Respiratory Effort, Clear to Auscultation Cardiovascular: NL Sounds; No Murmurs; No JVD, RRR Abdominal: NL Sounds; No Tenderness; No Distention Extremities: No Edema Skin: No Rash or Ulcers Neurological: Alert and Oriented x 3 Lines/Tubes/Other Access: Clean, Dry and Intact Peripheral IV Nutrition: Taking PO's Result Diagrams: 10/30/16 05:28 11/02/16 05:51 Additional Lab and Data: Lab Results 10/27/16 10/27/16 10/27/16 Range/Units 19:00 19:00 19:00 WBC 6.4 (3.5-10.8) 10^3/ul RBC 5.07 (4.0-5.4) 10^6/ul Hgb 14.2 (12.0-16.0) g/dl Hct 44 (35-47) % MCV 87 (80-97) fL MCH 28 (27-31) pg MCHC 32 (31-36) g/dl RDW 15 (10.5-15) % Plt Count 149 L (150-450) 10^3/ul MPV 10 (7.4-10.4) um3 Neut % (Auto) 82.6 (38-83) % Lymph % (Auto) 9.2 L (25-47) % [place] % (Auto) 7.6 (1-9) % Eos % (Auto) 0.1 (0-6) % Baso % (Auto) 0.5 (0-2) % Absolute Neuts (auto) 5.3 (1.5-7.7) 10^3/ul Absolute Lymphs (auto) 0.6 L (1.0-4.8) 10^3/ul Absolute Monos (auto) 0.5 (0-0.8) 10^3/ul Absolute Eos (auto) 0 (0-0.6) 10^3/ul Absolute Basos (auto) 0 (0-0.2) 10^3/ul Absolute Nucleated RBC 0 10^3/ul Nucleated RBC % 0 INR (Anticoag Therapy) (0.89-1.11) Sodium 131 L (133-145) mmol/L Potassium 3.8 (3.5-5.0) mmol/L Chloride 95 L (101-111) mmol/L Carbon Dioxide 11 L* (22-32) mmol/L Anion Gap 25 H (2-11) mmol/L BUN 15 (6-24) mg/dL Creatinine 1.39 H (0.51-0.95) mg/dL Est GFR ( Amer) 47.5 (>60) Est GFR (Non-Af Amer) 37.0 (>60) BUN/Creatinine Ratio 10.8 (8-20) Glucose 537 H* (70-100) mg/dL POC Glucose (mg/dL) (74-106) mg/dL Lactic Acid 1.1 (0.5-2.0) mmol/L Calcium 9.9 (8.6-10.3) mg/dL Magnesium 1.9 (1.9-2.7) mg/dL Total Bilirubin 0.50 (0.2-1.0) mg/dL AST 14 (13-39) U/L ALT 22 (7-52) U/L Alkaline Phosphatase 82 (34-104) U/L Troponin I 0.07 H* (<0.04) ng/mL Total Protein 6.6 (6.4-8.9) g/dL Albumin 3.7 (3.2-5.2) g/dL Globulin 2.9 (2-4) g/dL Albumin/Globulin Ratio 1.3 (1-3) TSH 0.89 (0.34-5.60) mcIU/mL Urine Color Urine Appearance Urine pH (5-9) Ur Specific [place] (1.010-1.030) Urine Protein (Negative) Urine Ketones (Negative) Urine Blood (Negative) Urine Nitrate (Negative) Urine Bilirubin (Negative) Urine Urobilinogen (Negative) Ur Leukocyte Esterase (Negative) Urine WBC (Auto) (Absent) Urine RBC (Auto) (Absent) Ur Squamous Epith Cells (Absent) Urine Bacteria (Absent) Urine Glucose (Negative) 10/27/16 10/27/16 10/27/16 Range/Units 19:00 22:00 22:55 WBC (3.5-10.8) 10^3/ul RBC (4.0-5.4) 10^6/ul Hgb (12.0-16.0) g/dl Hct (35-47) % MCV (80-97) fL MCH (27-31) pg MCHC (31-36) g/dl RDW (10.5-15) % Plt Count (150-450) 10^3/ul MPV (7.4-10.4) um3 Neut % (Auto) (38-83) % Lymph % (Auto) (25-47) % [place] % (Auto) (1-9) % Eos % (Auto) (0-6) % Baso % (Auto) (0-2) % Absolute Neuts (auto) (1.5-7.7) 10^3/ul Absolute Lymphs (auto) (1.0-4.8) 10^3/ul Absolute Monos (auto) (0-0.8) 10^3/ul Absolute Eos (auto) (0-0.6) 10^3/ul Absolute Basos (auto) (0-0.2) 10^3/ul Absolute Nucleated RBC 10^3/ul Nucleated RBC % INR (Anticoag Therapy) 0.81 L (0.89-1.11) Sodium (133-145) mmol/L Potassium (3.5-5.0) mmol/L Chloride (101-111) mmol/L Carbon Dioxide (22-32) mmol/L Anion Gap (2-11) mmol/L BUN (6-24) mg/dL Creatinine (0.51-0.95) mg/dL Est GFR ( Amer) (>60) Est GFR (Non-Af Amer) (>60) BUN/Creatinine Ratio (8-20) Glucose (70-100) mg/dL POC Glucose (mg/dL) 352 H (74-106) mg/dL Lactic Acid (0.5-2.0) mmol/L Calcium (8.6-10.3) mg/dL Magnesium (1.9-2.7) mg/dL Total Bilirubin (0.2-1.0) mg/dL AST (13-39) U/L ALT (7-52) U/L Alkaline Phosphatase (34-104) U/L Troponin I (<0.04) ng/mL Total Protein (6.4-8.9) g/dL Albumin (3.2-5.2) g/dL Globulin (2-4) g/dL Albumin/Globulin Ratio (1-3) TSH (0.34-5.60) mcIU/mL Urine Color Straw Urine Appearance Clear Urine pH 5.0 (5-9) Ur Specific [place] 1.022 (1.010-1.030) Urine Protein Negative (Negative) Urine Ketones 2+ H (Negative) Urine Blood 1+ H (Negative) Urine Nitrate Negative (Negative) Urine Bilirubin Negative (Negative) Urine Urobilinogen Negative (Negative) Ur Leukocyte Esterase Negative (Negative) Urine WBC (Auto) 1+(6-10/hpf) H (Absent) Urine RBC (Auto) 1+(3-5/hpf) H (Absent) Ur Squamous Epith Cells Present H (Absent) Urine Bacteria Absent (Absent) Urine Glucose 3+(>=500 mg/dl) H (Negative) Microbiology and Other Data: Microbiology 10/28/16 03:45 Nasal Screen MRSA (PCR)(SHANNAN) - Final Nasal Mrsa Negative Assess/Plan/Problems-Billing Assessment: Ms. Pritchard is a 76 yo female with a PMH of HTN and HLD who presented to the ED on 10/27/16 with nausea, vomiting, and weakness and was found to be in DKA, with no known history of diabetes, and was also found to have a LBBB on her EKG and elevated troponins. - Patient Problems (1) DKA (diabetic ketoacidoses) Code(s): E13.10 - OTH DIABETES MELLITUS WITH KETOACIDOSIS WITHOUT COMA Comment : HgbA1c 16.5, new diabetic Labs sent to evaluate for CINDI, still pending Appreciate art educator consult, continue nursing diabetic education Continue FSBG with Lispro SS with carb coverage and Lantus (2) Elevated troponin Code(s): R79.89 - OTHER SPECIFIED ABNORMAL FINDINGS OF BLOOD CHEMISTRY Comment : Max trop 0.10, continues to deny CP Echocardiogram shows EF 55-60%, normal LV systolic function, LV septal wall motion abnormality possibly due to presence of LBBB, and no significant valvular abnormalities noted. Appreciate cardiology input Patient will require outpatient stress test, per cardiology. (3) Left bundle branch block (LBBB) Code(s): I44.7 - LEFT BUNDLE-BRANCH BLOCK, UNSPECIFIED Comment: No previous EKG for review or comparison Patient should follow-up with cardiology for outpatient stress test. Continue ASA, metoprolol, statin, lisinopril (4) HTN (hypertension) Code(s): I10 - ESSENTIAL (PRIMARY) HYPERTENSION Comment: Normotensive. Continue Toprol XL at reduced dose of 100 and lisinopril. Hold verapamil. (5) HLD (hyperlipidemia) Code(s): E78.5 - HYPERLIPIDEMIA, UNSPECIFIED Comment: Continue statin. (6) DVT prophylaxis Comment: SQ Lovenox Status and Disposition: Inpatient admission. Plan for d/c to [facility].
[2016-11-02] MEDS ORDERED: Acetaminophen TAB* 325 MG PO PRN (09:54)
== END 2016-11-02 15:45 | disposition swing bed (61) | DRG 638 ==
LOC: ED 18:32 → ICU 23:19 → MEDTELE 10-29 00:26 → MED 10-30 20:21
PROVIDERS: ADMIT Internal Medicine; ATTEND Internal Medicine
DX: E13.10 Other specified diabetes mellitus with ketoacidosis without coma (principal); I24.9 Acute ischemic heart disease, unspecified; I11.9 Hypertensive heart disease without heart failure; I44.7 Left bundle-branch block, unspecified; R74.8 Abnormal levels of other serum enzymes; E78.5 Hyperlipidemia, unspecified; Z79.82 Long term (current) use of aspirin; Z79.899 Other long term (current) drug therapy; Z83.3 Family history of diabetes mellitus; Z80.1 Family history of malignant neoplasm of trachea, bronchus and lung; Z96.641 Presence of right artificial hip joint; Z96.652 Presence of left artificial knee joint
CPT/HCPCS: 36415; 71010; 80048; 80053; 80061; 81003; 81015; 82150; 83036; 83605; 83690; 83735; 84100; 84443; 84484; 85025; 85610; 85730; 86337; 86341; 87641; 90686; 90732; 93005; 93306; 99222; A9270-GY; J1650; J1815; J2405; J3475; J3480

== ENCOUNTER 2017-04-13 16:09 | Emergency (ER) | payer BC ==
[2017-04-13] MEDS ORDERED: NS 0.9% 1000 ML* 1,000 ML IV SCH (17:30)
--- NOTE | 2017-04-13 17:49 | RAD ---
Indication: Hypertension. Single frontal view of the chest performed at 1721 hours was reviewed. Comparison is made with previous exam dated October 27, 2016. No mediastinal shift is noted. Heart is of normal size and configuration. Lung caicedo appear clear. IMPRESSION: NO ACTIVE CARDIOPULMONARY DISEASE IS NOTED.
[2017-04-13 17:50] LABS: Urine Bacteria Absent (Absent); Urine Bilirubin Negative (Negative); Urine Glucose Negative (Negative); Urine Nitrite Negative (Negative)
[2017-04-13 17:50] LABS: Hematocrit 40 % (35-47); Hemoglobin 12.7 g/dl (12.0-16.0); Mean Corpuscular HGB Conc 32 g/dl (31-36); Mean Corpuscular Hemoglobin 28 pg (27-31); Mean Corpuscular Volume 88 fL (80-97); Mean Platelet Volume 9 um3 (7.4-10.4); Red Blood Count 4.52 10^6/ul (4.0-5.4); Red Cell Distribution Width 14 % (10.5-15); White Blood Count 5.4 10^3/ul (3.5-10.8)
[2017-04-13] MEDS ORDERED: Lisinopril TAB* 10 MG PO ONE (17:58)
[2017-04-13 18:27] LABS: Troponin I 0.01 ng/mL (<0.04)
[2017-04-13 18:37] LABS: ALT 20 U/L (7-52); AST 19 U/L (13-39); Albumin 3.4 g/dL (3.2-5.2); Alkaline Phosphatase 92 U/L (34-104); Anion Gap 8 mmol/L (2-11); BUN/Creatinine Ratio 15.9 (8-20); Blood Urea Nitrogen 17 mg/dL (6-24); C Reactive Protein 4.61 mg/L (< 5.00); CO2 Carbon Dioxide 26 mmol/L (22-32); Calcium 9.7 mg/dL (8.6-10.3); Chloride 103 mmol/L (101-111); Creatine Kinase 48 U/L (10-223); EGFR African American 64.3 (>60); Globulin 3.2 g/dL (2-4); Glucose 131 mg/dL (70-100); Lipase < 10 U/L (11.0-82.0); Magnesium 1.8 mg/dL (1.9-2.7); Potassium 3.8 mmol/L (3.5-5.0); Sodium 137 mmol/L (133-145); Total Protein 6.6 g/dL (6.4-8.9)
[2017-04-13 18:50] LABS: TSH (Thyroid Stimulating Horm) 1.59 mcIU/mL (0.34-5.60)
[2017-04-13 19:08] VITALS: BP 192/84
--- NOTE | 2017-04-13 19:21 | ED ---
Abdoul Mcmillan Alfonso, scribed for Giovanny Ac MD on 04/13/17 at 1640 . Complex/Multi-Sys Presentation - HPI Summary HPI Summary: This patient is a 76 year old female BIB[place] [facility] c/o a frontal headache since earlier today. Her headaches have come and go throughout the day. She reports her PCP referred to her the ED due to HTN and a blood sugar of 205. She rates the pain 4/10 in severity. Sx aggravated by nothing and alleviated by spontaneous resolution. She reports aches, and loss of appetite. She denies fever, chills, SOB, and CP. PMHx of diabetes. - History Of Current Complaint Chief Complaint: EDHypertension Time Seen by Provider: 04/13/17 16:36 Hx Obtained From: Patient Onset/Duration: Sudden Onset, Lasting Hours - Earlier today, Still Present Timing: Constant Severity Currently: Moderate Severity Initially: Moderate Aggravating Factor(s): Nothing. Alleviating Factor(s): Spontaneous resolution. Associated Signs And Symptoms: Positive: Other - Positive aches and loss of appetite; negative fever, chills, SOB, and CP - Allergies/Home Medications Allergies/Adverse Reactions: Allergies Allergy/AdvReac Type Severity Reaction Status Date / Time No Known Allergies Allergy Verified 10/27/16 18:43 PMH/Surg Hx/FS Hx/Imm Hx Endocrine/Hematology History: Reports: Hx Diabetes Denies: Hx Thyroid Disease Cardiovascular History: Reports: Hx Hypercholesterolemia, Hx Hypertension Denies: Hx Peripheral Vascular Disease Respiratory History: Denies: Other Respiratory Problems/Disorders GI History: Denies: Other GI Disorders Musculoskeletal History: Denies: Hx Arthritis, Hx Osteoporosis Sensory History: Reports: Hx Contacts or Glasses - GLASSES Denies: Hx Hearing Aid Opthamlomology History: Reports: Hx Contacts or Glasses - GLASSES Neurological History: Denies: Hx Headaches, Hx Seizures, Hx Transient Ischemic Attacks (TIA), Other Neuro Impairments/Disorders Psychiatric History: Denies: Hx Anxiety, Hx Depression - Cancer History Hx Chemotherapy: No Hx Radiation Therapy: No - Surgical History Surgery Procedure, Year, and Place: [place], [place] [facility]PL[place], [place], [facility] HYSTERECTOMY, AGE 31, [facility]. CHIN BREAST REDUCTION, [place], [facility] Hx Anesthesia Reactions: No Infectious Disease History: No Infectious Disease History: Denies: Traveled Outside the [place] in Last 30 Days - Family History Known Family History: Positive: Other - breast CA - mother/aunt - Social History Alcohol Use: Occasionally Substance Use Type: Reports: None Hx Tobacco Use: No Smoking Status (MU): Never Smoked Tobacco Review of Systems Negative: Fever, Chills Negative: Chest Pain Negative: Shortness Of Breath Positive: Other - Positive loss of appetite Positive: Arthralgia - "aches" Positive: Headache - Frontal All Other Systems Reviewed And Are Negative: Yes Physical Exam Triage Information Reviewed: Yes Vital Signs On Initial Exam: Initial Vitals Temp Pulse Resp BP Pulse Ox 98.8 F 56 16 204/90 98 04/13/17 16:26 04/13/17 16:26 04/13/17 16:26 04/13/17 16:26 04/13/17 16:26 Vital Signs Reviewed: Yes Appearance: Positive: Well-Appearing, No Pain Distress Skin: Positive: Warm, Skin Color Reflects Adequate Perfusion, Dry Head/Face: Positive: Normal Head/Face Inspection Eyes: Positive: EOMI, JUSTYN ENT: Positive: Normal ENT inspection Neck: Positive: Supple, Nontender Respiratory/Lung Sounds: Positive: Clear to Auscultation, Breath Sounds Present Cardiovascular: Positive: RRR Abdomen Description: Positive: Nontender, Soft Bowel Sounds: Positive: Present Musculoskeletal: Positive: Normal, Strength/ROM Intact Neurological: Positive: Normal, Sensory/Motor Intact, Alert, Oriented to Person Place, Time Psychiatric: Positive: Affect/Mood Appropriate Diagnostics - Vital Signs Vital Signs Temp Pulse Resp BP Pulse Ox 04/13/17 16:26 98.8 F 56 16 204/90 98 - Laboratory Lab Results: Lab Results 04/13/17 04/13/17 04/13/17 Range/Units 17:20 17:38 17:38 WBC 5.4 (3.5-10.8) 10^3/ul RBC 4.52 (4.0-5.4) 10^6/ul Hgb 12.7 (12.0-16.0) g/dl Hct 40 (35-47) % MCV 88 (80-97) fL MCH 28 (27-31) pg MCHC 32 (31-36) g/dl RDW 14 (10.5-15) % Plt Count 159 (150-450) 10^3/ul MPV 9 (7.4-10.4) um3 Neut % (Auto) 62.8 (38-83) % Lymph % (Auto) 25.9 (25-47) % [place] % (Auto) 10.0 H (1-9) % Eos % (Auto) 0.5 (0-6) % Baso % (Auto) 0.8 (0-2) % Absolute Neuts (auto) 3.4 (1.5-7.7) 10^3/ul Absolute Lymphs (auto) 1.4 (1.0-4.8) 10^3/ul Absolute Monos (auto) 0.5 (0-0.8) 10^3/ul Absolute Eos (auto) 0 (0-0.6) 10^3/ul Absolute Basos (auto) 0 (0-0.2) 10^3/ul Absolute Nucleated RBC 0 10^3/ul Nucleated RBC % 0 INR (Anticoag Therapy) 0.90 (0.89-1.11) APTT 29.1 (26.0-36.3) seconds Sodium (133-145) mmol/L Potassium (3.5-5.0) mmol/L Chloride (101-111) mmol/L Carbon Dioxide (22-32) mmol/L Anion Gap (2-11) mmol/L BUN (6-24) mg/dL Creatinine (0.51-0.95) mg/dL Est GFR ( Amer) (>60) Est GFR (Non-Af Amer) (>60) BUN/Creatinine Ratio (8-20) Glucose (70-100) mg/dL Lactic Acid (0.5-2.0) mmol/L Calcium (8.6-10.3) mg/dL Magnesium (1.9-2.7) mg/dL Total Bilirubin (0.2-1.0) mg/dL AST (13-39) U/L ALT (7-52) U/L Alkaline Phosphatase (34-104) U/L Total Creatine Kinase (10-223) U/L CK-MB (CK-2) (0.6-6.3) ng/mL Troponin I (<0.04) ng/mL C-Reactive Protein (< 5.00) mg/L B-Natriuretic Peptide ( - 100) pg/mL Total Protein (6.4-8.9) g/dL Albumin (3.2-5.2) g/dL Globulin (2-4) g/dL Albumin/Globulin Ratio (1-3) Lipase (11.0-82.0) U/L TSH (0.34-5.60) mcIU/mL Urine Color Straw Urine Appearance Cloudy Urine pH 6.0 (5-9) Ur Specific [place] 1.004 L (1.010-1.030) Urine Protein Negative (Negative) Urine Ketones Negative (Negative) Urine Blood Negative (Negative) Urine Nitrate Negative (Negative) Urine Bilirubin Negative (Negative) Urine Urobilinogen Negative (Negative) Ur Leukocyte Esterase 1+ H (Negative) Urine WBC (Auto) 1+(6-10/hpf) H (Absent) Urine RBC (Auto) 1+(3-5/hpf) H (Absent) Ur Squamous Epith Cells Present H (Absent) Urine Bacteria Absent (Absent) Urine Glucose Negative (Negative) 04/13/17 04/13/17 04/13/17 Range/Units 17:38 17:38 17:38 WBC (3.5-10.8) 10^3/ul RBC (4.0-5.4) 10^6/ul Hgb (12.0-16.0) g/dl Hct (35-47) % MCV (80-97) fL MCH (27-31) pg MCHC (31-36) g/dl RDW (10.5-15) % Plt Count (150-450) 10^3/ul MPV (7.4-10.4) um3 Neut % (Auto) (38-83) % Lymph % (Auto) (25-47) % [place] % (Auto) (1-9) % Eos % (Auto) (0-6) % Baso % (Auto) (0-2) % Absolute Neuts (auto) (1.5-7.7) 10^3/ul Absolute Lymphs (auto) (1.0-4.8) 10^3/ul Absolute Monos (auto) (0-0.8) 10^3/ul Absolute Eos (auto) (0-0.6) 10^3/ul Absolute Basos (auto) (0-0.2) 10^3/ul Absolute Nucleated RBC 10^3/ul Nucleated RBC % INR (Anticoag Therapy) (0.89-1.11) APTT (26.0-36.3) seconds Sodium 137 (133-145) mmol/L Potassium 3.8 (3.5-5.0) mmol/L Chloride 103 (101-111) mmol/L Carbon Dioxide 26 (22-32) mmol/L Anion Gap 8 (2-11) mmol/L BUN 17 (6-24) mg/dL Creatinine 1.07 H (0.51-0.95) mg/dL Est GFR ( Amer) 64.3 (>60) Est GFR (Non-Af Amer) 50.0 (>60) BUN/Creatinine Ratio 15.9 (8-20) Glucose 131 H (70-100) mg/dL Lactic Acid 0.7 (0.5-2.0) mmol/L Calcium 9.7 (8.6-10.3) mg/dL Magnesium 1.8 L (1.9-2.7) mg/dL Total Bilirubin 0.60 (0.2-1.0) mg/dL AST 19 (13-39) U/L ALT 20 (7-52) U/L Alkaline Phosphatase 92 (34-104) U/L Total Creatine Kinase 48 (10-223) U/L CK-MB (CK-2) 2.5 (0.6-6.3) ng/mL Troponin I 0.01 (<0.04) ng/mL C-Reactive Protein 4.61 (< 5.00) mg/L B-Natriuretic Peptide 265 H ( - 100) pg/mL Total Protein 6.6 (6.4-8.9) g/dL Albumin 3.4 (3.2-5.2) g/dL Globulin 3.2 (2-4) g/dL Albumin/Globulin Ratio 1.1 (1-3) Lipase < 10 L (11.0-82.0) U/L TSH 1.59 (0.34-5.60) mcIU/mL Urine Color Urine Appearance Urine pH (5-9) Ur Specific [place] (1.010-1.030) Urine Protein (Negative) Urine Ketones (Negative) Urine Blood (Negative) Urine Nitrate (Negative) Urine Bilirubin (Negative) Urine Urobilinogen (Negative) Ur Leukocyte Esterase (Negative) Urine WBC (Auto) (Absent) Urine RBC (Auto) (Absent) Ur Squamous Epith Cells (Absent) Urine Bacteria (Absent) Urine Glucose (Negative) Result Diagrams: 04/13/17 17:38 04/13/17 17:38 Lab Statement: Any lab studies that have been ordered have been reviewed, and results considered in the medical decision making process. - Radiology CXR Radiology Interpretation Completed By: Radiologist - NO ACTIVE CARDIOPULMONARY DISEASE IS NOTED. - EKG 1657 Cardiac Rate: Bradycardia - BPM 58 EKG Rhythm: Sinus Bradycardia EKG Interpretation: HI interval 216 and LBBB EKG Comparison: No Significant Change - 10/27/16 Complex Multi-Symp Course/Dx Course Of Treatment: NO CRITICAL CARE TIME. PATIENT WELL IN ED. GIVEN LISINOPRIL 20MG PO IN ED. LBBB SEEN ON 10/27/16 EKG. DISCHARGE HOME STABLE. - Diagnoses Provider Diagnoses: Hypertension, Left bundle branch block Discharge - Discharge Plan Condition: Stable Disposition: HOME Patient Education Materials: Hypertension (ED) Referrals: Shelley Anderson NP [Primary Care Provider] - Additional Instructions: FOLLOW UP WITH YOUR DOCTOR. IN THE EMERGENCY DEPARTMENT, YOU WERE GIVEN A SINGLE DOSE OF LISINOPRIL 20MG. RETURN TO THE EMERGENCY DEPARTMENT FOR ANY WORSENING OF YOUR CONDITION OR QUESTIONS OR CONCERNS. The documentation as recorded by the Abdoul sims Alfonso accurately reflects the service I personally performed and the decisions made by me, Giovanny Ac MD.
== END 2017-04-13 19:37 | disposition home or self-care (01) ==
LOC: ED 16:09
DX: I10 Essential (primary) hypertension (principal); I44.7 Left bundle-branch block, unspecified; R51 Headache
CPT/HCPCS: 36415; 71010; 80053; 81003; 81015; 82550; 82553; 83605; 83690; 83735; 83880; 84443; 84484; 85025; 85610; 85730; 86140; 87086; 93005; 99282; A9270-GY

== ENCOUNTER 2023-11-07 10:38 | Observation (INO) ==
[~2023-11-07 10:38] MED LIST: EPINEPHrine SYR 0.1MG/ML 10 ml SYRINGE IV ONE
[2023-11-07 11:06] LABS: ABS Eosinophils 0.1 10^3/uL (0.0-0.5); ABS Lymphocytes 1.3 10^3/uL (1.0-4.8); ABS Monocytes 0.4 10^3/uL (0.0-0.9); ABS Neutrophils 5.4 10^3/uL (1.5-7.6); ABS Nucleated RBC 0.01 10^3/ul; Eosinophil % 1.1 %; Hematocrit 37.1 % (35-45); Hemoglobin 12.3 g/dL (11.5-14.3); Lymphocyte % 18.3 %; Mean Corpuscular Hemoglobin 28.7 pg (27-33); Mean Corpuscular Hgb Conc 33.1 g/dL (31-36); Mean Corpuscular Volume 86.6 fL (80-97); Mean Platelet Volume 8.2 fL (7.5-11.2); Nucleated Red Blood Cells % 0.2 %/100WBC (0.0-0.8); Platelet Count 215 10^3/uL (150-450); Red Blood Count 4.29 10^6/uL (3.63-4.92); Red Cell Distribution Width 15.9 % (12-17); White Blood Count 7.3 10^3/uL (3.8-11.8)
[2023-11-07 11:18] LABS: INR 0.91 (0.83-1.13)
[2023-11-07 11:27] LABS: Albumin 3.9 g/dL (3.2-5.2); Albumin/Globulin Ratio 1.3 (1-3); Calcium 9.9 mg/dL (8.6-10.3); Creatinine, Serum 1.28 mg/dL (0.51-0.95); Globulin 2.9 g/dL (2-4); Potassium 4.2 mmol/L (3.5-5.0); Total Bilirubin 0.7 mg/dL (0.2-1.0); Total Protein 6.8 g/dL (6.4-8.9); eGFR CKD-EPI 41.8 (>60)
[2023-11-07] MEDS ORDERED: NS 0.9% 500 ml BAG 500 ML IV ONE (12:27)
[2023-11-07] MEDS ORDERED: Iodixanol (CONTRAST) 320 MG/ML 100 ML SDV IV ONE (12:36)
[2023-11-07 12:38] LABS: High Sensitivity Troponin 1 Hr 5 pg/mL (<15)
[2023-11-07] MEDS: Enoxaparin 30 MG/0.3 ML SYR SUBCUT SCH (17:26)
[2023-11-08 06:35] LABS: ABS Eosinophils 0.1 10^3/uL (0.0-0.5); ABS Lymphocytes 0.7 10^3/uL (1.0-4.8); ABS Monocytes 0.2 10^3/uL (0.0-0.9); ABS Neutrophils 2.9 10^3/uL (1.5-7.6); ABS Nucleated RBC 0.01 10^3/ul; Eosinophil % 1.5 %; Hematocrit 34.7 % (35-45); Hemoglobin 11.3 g/dL (11.5-14.3); Lymphocyte % 18.2 %; Mean Corpuscular Hemoglobin 28.4 pg (27-33); Mean Corpuscular Hgb Conc 32.7 g/dL (31-36); Mean Corpuscular Volume 86.9 fL (80-97); Mean Platelet Volume 8.2 fL (7.5-11.2); Nucleated Red Blood Cells % 0.2 %/100WBC (0.0-0.8); Platelet Count 161 10^3/uL (150-450); Red Blood Count 3.99 10^6/uL (3.63-4.92); Red Cell Distribution Width 15.8 % (12-17); White Blood Count 3.9 10^3/uL (3.8-11.8)
[2023-11-08 06:54] LABS: Calcium 9.2 mg/dL (8.6-10.3); Creatinine, Serum 0.9 mg/dL (0.51-0.95); HDL Cholesterol 47.5 mg/dL; Magnesium 1.9 mg/dL (1.9-2.7); Potassium 3.8 mmol/L (3.5-5.0); eGFR CKD-EPI 63.8 (>60)
[2023-11-08] MEDS ORDERED: Aspirin EC 81 mg TAB.EC (enteric coated) PO SCH (09:00)
[2023-11-08] MEDS ORDERED: Donepezil HCL 10 mg TAB (NF) PO SCH (09:00)
[2023-11-08] MEDS ORDERED: Potassium Chloride LIQUID 20 MEQ/15 ML LIQUID PO SCH (09:00)
[2023-11-08] MEDS ORDERED: Regadenoson 0.4 MG/5 ML SYRINGE ONE (11:43)
[2023-11-08] MEDS ORDERED: Ondansetron 4 mg VIAL 2 MG/ML 2 ml VIAL ONE (12:47)
[2023-11-08] MEDS ORDERED: Insulin GLARGINE 100 un/ml 10 ml VIAL SUBCUT SCH (16:30)
[2023-11-08] MEDS: Enoxaparin 30 MG/0.3 ML SYR SUBCUT SCH (17:04)
[2023-11-08 17:17] VITALS: BP 164/79
== END 2023-11-08 18:20 | disposition home or self-care (01) ==
LOC: ED 10:38 → EDHOLD 10:38 → MEDTELE 19:38
PROVIDERS: ADMIT Internal Medicine; ATTEND Internal Medicine